=== PATIENT | male | born 1950 | race Caucasian/White ===

== ENCOUNTER → 2018-03-30 14:54 | Outpatient (CLI) | payer MEDICARE, SELFPAY ==
[2018-03-30 15:43] LABS: Add Manual Diff / Slide Review NO; Basophils Percent Auto 1.1 % (0-2); Eosinophils Percent Auto 4.8 % (2-4); Hematocrit 43.9 % (41-53); Hemoglobin 15.1 g/dL (13.5-17.5); Lymphocytes Percent Auto 26.4 % (25-40); Mean Corpuscular HGB Conc 34.4 % (30-36); Mean Corpuscular Hemoglobin 31.6 PG (26-34); Mean Corpuscular Volume 91.9 fL (80-100); Monocytes Percent Auto 7.1 % (3-14); Neutrophils Absolute Auto 4400 /uL (3000-5900); Neutrophils Percent Auto 60.6 % (50-75); Platelet Count 190 X10^3/uL (150-400); Red Blood Cell Count 4.78 X10^6/uL (4.5-5.9); Red Cell Distribution Width 13.9 % (11.6-14.8); White Blood Cell Count 7.3 X10^3/uL (4.5-11.0)
== END ==
PROVIDERS: Visit Provider Physician Assistant
DX: M48.061 Spinal stenosis, lumbar region without neurogenic claudication (principal); M51.16 Intervertebral disc disorders with radiculopathy, lumbar region; Z01.818 Encounter for other preprocedural examination; Z01.812 Encounter for preprocedural laboratory examination
CPT/HCPCS: 36415; 85025; 93005; 93010

== ENCOUNTER 2018-04-25 11:02 | Day surgery (SDC) | payer MEDICARE, SELFPAY ==
[2018-04-06 12:32] VITALS: BMI 31.6
[2018-04-20 07:45] VITALS: BMI 31.6
[2018-04-25] VITALS (7 sets, daily range): BP systolic 103–151; BP diastolic 70–83; PULSE 54–66; RESP 10–16; TEMP 36.3–37.6; O2SAT 92–99; BMI 31.6
--- NOTE | 2018-04-25 | DI.RAD.S_ITS ---
PROCEDURE: XR LUMBAR SPINE 2-3V INDICATIONS: L4-5 MICRODISCECTOMY TECHNIQUE: 2 views of the lumbar spine were acquired. COMPARISON: [facility] Outside Film, MR, MR LUMBAR SPINE WITHOUT CONTRAST, 01/13/2018, 10:39. FINDINGS: Intraoperative images demonstrate localizer overlying the posterior aspect of L5. There is trace retrolisthesis of L3 on L4 L4-L5 and L5-S1. L5-S1 foraminal narrowing is present. IMPRESSION: Intraoperative localization as above. Dictated by: Suha Garcia M.D. on 04/25/2018 at 15:26 Approved by: Suha Garcia M.D. on 04/25/2018 at 15:27
[2018-04-25] MEDS: LACTATED RINGERS 1,000 ML 42 ML IV (11:40)
--- NOTE | 2018-04-25 13:15 | PM.PREOP ---
Pre-operative Note Interval Note Pre-op Check: Yes History & Physical Reviewed by Physician, Yes Exam Performed and Yes History & Physical exam performed today by Physician Changes: No
[2018-04-25] MEDS: CLINDAMYCIN 900 MG/50 ML PIGGYBACK 50 MG IV (13:16)
--- NOTE | 2018-04-25 13:46 | SUR.OPER ---
Prone on spine table, head in foam head support, padded chest and pelvic supports, gel pad at knees, lower legs supported by pillows; nipples, genitalia and toes free of pressure, arms secured on foam padded arm boards at <90 degrees abduction. Tape over blanket at thigh secured to table.
[2018-04-25] MEDS: methylPREDNISolone acet DEPO 40 MG/ML VIAL INJ (14:01)
[2018-04-25] MEDS: BUPIVACAINE 0.25% W/ EPI VIAL 50 ML INJ (14:03)
--- NOTE | 2018-04-25 14:36 | P.OP_ITS ---
Operative Date/Time/Diagnoses Date of procedure: 04/25/18 Time of procedure: 13:13 Pre-op diagnosis: 1. L4-5 spinal stenosis 2. L4-5 lumbar disc herniation Post-op diagnosis: same Procedure & Clinicians Procedure: 1. L4-5 left microdiscectomy 2. Utiliztion of microsurgical technique and operating microscope Same procedure as scheduled: No Indications: Patient has been having chronic back pain and worsening lumbar radiculopathy. Patient failed multiple conservative management with worsening pain weakness and numbness in her lower extremity. Patient has been having difficulty performing activity of daily living. After discussing risks benefits of treatment options, patient elected proceed with surgery. Surgeon: Lucinda South Residential Insurance Inspector: Jamee Scott Click Yes if Unassisted: No Anesthesia Type: General Operative Notes Closure Type: primary Specimen(s): none sent Estimated Blood Loss (mL): 10 Procedure in detail: Patient was seen in the preoperative area. Risks and benefits of the surgery was discussed with the patient. Informed consent was obtained from the patient and placed in the chart. Surgical site was marked. Patient was taken to the operative room. General anesthesia was administered. Prophylactic antibiotic was given to the patient less than 30 min before the incision was made. Patient was placed into a prone position on the Hardeep table. Patient's back was then prepped and draped in the sterile fashion. Time- out was performed at this time. Using AP and lateral C-arm imaging the interval between L4-5 was identified and marked on patient's back. A 1 inch incision 1 in from midline was made on the left side. The fascia was incised in line with skin incision. Globus MARS retractors was placed inside the incision and docked onto the L4 lamina. Using microsurgical technique and operating microscope, a L4 laminotomy was performed using a Kerrison rongeur. Liagamentum flavum was resected at the site of the laminotomy. The disc space at L4-5 was identified. Microdiscectomy was performed by incising the annulus with #11 blade. Microcurettes and pituitary was used to removed herniated disc fragments of disc from the epidural space. After the microdiskectomy was completed, the area medial lateral superior and inferior to the area of the microdiskectomy was inspected and explored using a micro curette. No other impinging structure was identified. The wound was then irrigated with sterile normal saline. 40 mg Depo-Medrol was placed into the epidural space. The deep fascia was closed with 1-0 Vicryl. The subcutaneous tissue was closed with 2-0 Vicryl. The skin was closed with 4- 0 Monocryl. Patient tolerated the procedure well. There were no complications. Patient was transferred recovery room in stable condition. Complications: none Condition: stable Disposition: same day surgery Plan for aftercare: Discharge home
[2018-04-25] MEDS: ALBUTEROL 2.5 MG/3 ML NEB (ADULT) INH (15:09)
[2018-04-25] MEDS: OXYCODONE/ACETAMINOPHEN 5/325 TABLET 1 TAB PO (15:58)
== END 2018-04-25 16:02 | disposition home or self-care (01) ==
PROVIDERS: PCP Family Medicine; Visit Provider Orthopaedic Surgery Orthopaedic Surgery of the Spine
PROC: (CPT 63030; principal; 2018-04-25 13:15)
DX: M48.061 Spinal stenosis, lumbar region without neurogenic claudication (principal); M51.16 Intervertebral disc disorders with radiculopathy, lumbar region; M19.90 Unspecified osteoarthritis, unspecified site; I10 Essential (primary) hypertension; E78.5 Hyperlipidemia, unspecified; I25.10 Atherosclerotic heart disease of native coronary artery without angina pectoris; Z87.891 Personal history of nicotine dependence
CPT/HCPCS: 63030; 72100; 76000; J1030; J2250; J2405; J2704; J3010; J7613

== ENCOUNTER → 2020-05-10 06:05 | Outpatient (CLI) | payer MEDICARE, SELFPAY ==
[2020-05-10 08:54] LABS: Bilirubin Urine UA NEGATIVE (NEGATIVE); Color Urine UA YELLOW; Glucose Urine UA NEGATIVE (Negative); Ketones Urine UA NEGATIVE (NEGATIVE); Leukocyte Esterase Urine UA 2+ (NEGATIVE); Nitrite Urine UA NEGATIVE (Negative); Occult Blood Urine UA 1+ (Negative); Protein Urine UA TRACE (Negative); Urobilinogen Urine UA 0.2 E.U./dL (0.2)
[2020-05-10 09:02] LABS: Appearance Urine UA Cloudy
[2020-05-10 09:10] LABS: BUN Creatinine Ratio 15.7 (6-22); Blood Urea Nitrogen 19 mg/dL (9-20); Calcium 10.3 mg/dL (8.4-10.2); Carbon Dioxide 26 mmol/L (22-32); Chloride 107 mmol/L (98-107); Estimated Glomerular Filt Rate 59.5 mL/min (>60); Glucose 145 mg/dL (80-110); HEMOLYSIS 26 (0-50); Potassium 4.6 mmol/L (3.4-5.1); Sodium 139 mmol/L (137-145); Uric Acid 4.3 mg/dL (3.5-8.5)
[2020-05-10 09:18] LABS: Bacteria Urine Moderate (10-30); Culture Indicated Urine Specimen Cultured; RBC Urine 1-5/HPF (0-5/HPF); WBC Urine >100/HPF (0-5/HPF)
[2020-05-11 06:25] LABS: Parathyroid Hormone Int 30 pg/mL (15-65)
== END ==
PROVIDERS: PCP Physician Assistant; Referring Provider Physician Assistant; Visit Provider Urology
DX: N20.0 Calculus of kidney (principal)
CPT/HCPCS: 36415; 80048; 81001; 83970; 84550; 87077; 87086; 87186

== ENCOUNTER → 2021-01-01 15:41 | Outpatient (CLI) | payer MEDICARE, SELFPAY ==
[2021-01-01 16:09] LABS: Bacteria Urine None Seen
[2021-01-01 16:48] LABS: Add Manual Diff / Slide Review NO; Basophils Absolute Auto 100 /uL (0-100); Eosinophils Absolute Auto 200 /uL (0-450); Eosinophils Percent Auto 2.4 % (2-4); Hematocrit 38.8 % (41-53); Hemoglobin 13.1 g/dL (13.5-17.5); Lymphocytes Absolute Auto 1300 /uL (1100-4500); Lymphocytes Percent Auto 19.5 % (25-40); Mean Corpuscular HGB Conc 33.9 % (30-36); Mean Corpuscular Hemoglobin 30.7 PG (26-34); Mean Corpuscular Volume 90.5 fL (80-100); Monocytes Absolute Auto 400 /uL (0-900); Monocytes Percent Auto 6.2 % (3-14); Neutrophils Absolute Auto 4600 /uL (1500-7000); Neutrophils Percent Auto 70.9 % (50-75); Platelet Count 186 X10^3/uL (150-400); Red Blood Cell Count 4.28 X10^6/uL (4.5-5.9); White Blood Cell Count 6.6 X10^3/uL (4.5-11.0)
[2021-01-01 17:09] LABS: BUN Creatinine Ratio 15.8 (6-22); Blood Urea Nitrogen 18 mg/dL (9-20); Calcium 10.1 mg/dL (8.4-10.2); Carbon Dioxide 23 mmol/L (22-32); Chloride 109 mmol/L (98-107); Estimated Glomerular Filt Rate > 60.0 mL/min (>60); Glucose 120 mg/dL (80-110); HEMOLYSIS < 15 (0-50); Hemoglobin A1C% w Est Avg Glu 7.6 % (4.0-6.0); Potassium 4.1 mmol/L (3.4-5.1); Sodium 139 mmol/L (137-145)
[2021-01-01 17:39] LABS: Appearance Urine UA CLEAR; Bilirubin Urine UA NEGATIVE (NEGATIVE); Color Urine UA YELLOW; Glucose Urine UA TRACE g/dL (Negative); Ketones Urine UA NEGATIVE (NEGATIVE); Leukocyte Esterase Urine UA TRACE (NEGATIVE); Nitrite Urine UA NEGATIVE (Negative); Occult Blood Urine UA 3+ (Negative); Protein Urine UA 2+ (Negative); Specific Gravity Urine UA 1.025 (1.000-1.035); Urobilinogen Urine UA 0.2 E.U./dL (0.2)
[2021-01-01 18:00] LABS: Culture Indicated Urine Specimen Cultured; RBC Urine 1-5/HPF (0-5/HPF); Squamous Epithelial Cell Urine None Seen (0-5/HPF); WBC Urine 5-10/HPF (0-5/HPF)
== END ==
PROVIDERS: PCP Physician Assistant; Referring Provider Orthopaedic Surgery Orthopaedic Surgery of the Spine; Visit Provider Orthopaedic Surgery Orthopaedic Surgery of the Spine
DX: Z01.818 Encounter for other preprocedural examination (principal); R73.9 Hyperglycemia, unspecified; Z01.812 Encounter for preprocedural laboratory examination; N39.0 Urinary tract infection, site not specified
CPT/HCPCS: 36415; 80048; 81001; 83036; 85025; 87077; 87086; 87147; 87186; 93005

== ENCOUNTER → 2021-01-22 08:50 | Outpatient (CLI) | payer MEDICARE, SELFPAY ==
[2021-01-22 11:21] LABS: COVID19 -Nasal RAPID Negative (Negative)
== END ==
PROVIDERS: PCP Physician Assistant; Referring Provider Student in an Organized Health Care Education/Training Program; Visit Provider Student in an Organized Health Care Education/Training Program
DX: Z01.812 Encounter for preprocedural laboratory examination (principal); Z20.822 Contact with and (suspected) exposure to COVID-19
CPT/HCPCS: 87635; C9803

== ENCOUNTER 2021-01-24 06:01 | Inpatient (IN) | payer MEDICARE, SELFPAY ==
[2021-01-13 13:58] VITALS: BMI 30.2
[2021-01-24] VITALS (12 sets, daily range): BP systolic 95–141; BP diastolic 51–74; PULSE 55–76; RESP 12–20; TEMP 35.7–37.3; O2SAT 93–98; BMI 30.2
[2021-01-24] MEDS: LACTATED RINGERS 1,000 ML 42 ML IV ×2 (07:07→09:41)
[2021-01-24] MEDS: ACETAMINOPHEN 325 MG TABLET 975 MG PO (07:10)
[2021-01-24] MEDS: GABAPENTIN 300 MG CAPSULE PO (07:10)
--- NOTE | 2021-01-24 07:36 | PM.PREOP ---
Pre-operative Note COVID-19 COVID-19 status: Negative Result date/Date tested (Pos, Neg/Pending): 01/22/21 Interval Note History & Physical reviewed/Exam performed by Physician: Yes Changes to H&P: No
[2021-01-24] MEDS: CEFAZOLIN 1 GM VIAL 2 GM IV ×2 (08:02→16:22)
[2021-01-24] MEDS: BUPIVACAINE 0.25% (PF) VIAL 30 ML INJ (09:02)
[2021-01-24] MEDS: BUPIVACAINE LIPOSOME 266 MG/20 ML VIAL INJ (09:03)
--- NOTE | 2021-01-24 12:13 | PM.OP.1 ---
Operative Date/Time/Diagnoses Date of procedure: 01/24/21 Time of procedure: 07:50 Pre-op diagnosis: 1. L3-4, L4-5 spinal stenosis 2. Hx of laminectomy with epidural scarring 3. Lumbar spondylosis with radiculopathy Post-op diagnosis: same Procedure & Clinicians Procedure: 1. L3-4, L4-5 Postero-lateral and posterior interbody fusion 2. L3-4, L4-5 interbody cage placement. 3. L3-4, L4-5 decompressive laminectomy with bilateral facetecomies 4. L3-4, L4-5 Posterior segmental instrumentation 5. [place] of bone marrow from iliac crest 6. Utilization of microsurgical technique and operating microscope Same procedure as scheduled: Yes Indications: Patient has been having chronic back pain and worsening lumbar radiculopathy. Patient had previous lumbar decompression surgery with temporary relief. Patient has been having worsening leg pain and back pain over the last 6 months. Patient failed multiple conservative management with worsening pain weakness and numbness in her lower extremity. Patient has been having difficulty performing activity of daily living. After discussing risks benefits of treatment options, patient elected proceed with surgery. Surgeon: Lucinda South Aircraft Line Assembler: Tyler Ray Click Yes if Unassisted: No Anesthesia Type: General Operative Notes Closure Type: primary Specimen(s): none sent Prosthetic devices, grafts, tissues, transplants, or devices: Globus revolve screws, Rise cages Applied: catheter Estimated Blood Loss (mL): 150 Blood products transfused: none Procedure in detail: Patient was seen in the preoperative area. Risks and benefits of the surgery was discussed with the patient. Informed consent was obtained from the patient and placed in the chart. Surgical site was marked. Patient was taken to the operative room. General anesthesia was administered. Prophylactic antibiotic was given to the patient less than 30 min before the incision was made. Patient was placed into a prone position on the Hardeep table. Patient's back was then prepped and draped in the sterile fashion. Time-out was performed at this time. Using AP and lateral C-arm imaging the interval between L3-4, L4-5 was identified and marked on patient's back. A 2 inch incision 2 in from midline was made on the left side first. The fascia was incised in line with skin incision. Globus MARS retractors was placed inside the incision and docked onto the L3 and L4 lamina. Using microsurgical technique and operating microscope, a L3 and L4 laminectomy and L3-4, L4-5 facetectomy was performed using a Kerrison rongeur. Patient was found have severe central and neuroforaminal stenosis which was fully decompressed after the decompression was completed. The facetectomy and laminectomy involved more than 75% of the facets at both levels and render the L3-4 L4-5 level grossly unstable and require fusion procedure same time. The disc space at L3-4, L4-5 was identified. And a total diskectomy was performed at L3-4, L4-5 level. The endplates were decorticated using a rasp and shaver. The total diskectomy and decortication was performed at L3-4, L4-5 level in order to to accomplish a L3-4, L4-5 fusion. The local bone from the laminectomy and facetectomy was saved for local bone grafting. After the total diskectomy and decortication was completed, Trifecta bone graft material was combined with local bone that was harvested earlier. At this time, a separate skin is incision was made over the iliac crest. A Jamshidi needle was inserted into the iliac crest through a separate skin incision. 5 cc of bone marrow aspiration was obtained through the separate skin incision using a Jamshidi needle from the iliac crest. The bone marrow aspiration was combined with local bone and the Trifecta bone grafting material. The bone grafting material was placed into the L3-4, L4-5 interbody space along with two cages, one expandable cage at each level. The cages were expanded to their maximum height using the torque limiting screwdriver. At this time a mirror image incision was made on the right side. The fascia was incised in line with the skin incision. Globus MARS retractor was inserted and docked onto the L3-4, L4-5 posterolateral gutter. Using the power drill, posterior-lateral decortication was performed at L3-4, L4-5 level until bleeding cortical bone was identified. The remaining bone grafting material was placed into the L3-4, L4-5 posterior lateral gutter he order to accomplish posterolateral fusion at the L3-4, L4-5 levels. Using the double C-arm technique, pedicle screws were placed into the L3, L4, L5 pedicles bilaterally. This was done by placing the Jamshidi needle into the pedicles, then placing the guidewires over the Jamshidi needle, and finally placing the cannulated screws over the guidewires bilaterally. After the pedicle screws were placed, 2 titanium rods was locked into the heads of the pedicle screws using locking caps and torque limiting screwdriver. Total 6 pedicles screws were placed. After all the hardware was placed, and confirmed with AP and lateral C-arm imaging, the wound was then irrigated with sterile normal saline and packed with Ray-Sonia gauze for 3 min to accomplish hemostasis. After the gauze was removed the deep fascia was closed with #1 Vicryl suture. The subcutaneous layer was closed with 2-0 Vicryl. The skin was closed with skin vaishali. Patient tolerated the procedure well. There were no complications. Complications: none Post-operative Condition: stable Disposition: PACU Plan for aftercare: Admit to inpatient hospital
--- NOTE | 2021-01-24 12:15 | DI.RAD.S_ITS ---
PROCEDURE: XR LUMBAR SPINE 2-3V INDICATIONS: L3-4, L4-5 TLIF TECHNIQUE: 3 views of the lumbar spine were acquired. COMPARISON: [facility], [facility], XR LUMBAR SPINE 2-3V, 04/25/2018, 13:39. FINDINGS: Fluoroscopic images demonstrating posterior fusion from L3 through L5 is noted. There is good anatomic alignment intervertebral spacers are present. IMPRESSION: Posterior fusion as above. Dictated by: Suha Garcia M.D. on 01/24/2021 at 13:04 Approved by: Suha Garcia M.D. on 01/24/2021 at 13:04
[2021-01-24] MEDS: ALBUTEROL 2.5 MG/3 ML NEB (ADULT) INH (12:35)
--- NOTE | 2021-01-24 12:51 | SUR.PHASEI ---
1235- katey breath sounds coarse, albuterol per nebulizer given
[2021-01-24] MEDS: SODIUM CHLORIDE 0.9% 1,000 ML 100 ML IV (15:06)
[2021-01-24] MEDS: OXYCODONE IR 5 MG TABLET 10 MG PO (15:53)
[2021-01-24 16:04] LABS: Bilirubin Urine UA NEGATIVE (NEGATIVE); Color Urine UA YELLOW; Glucose Urine UA NEGATIVE (Negative); Ketones Urine UA NEGATIVE (NEGATIVE); Leukocyte Esterase Urine UA 1+ (NEGATIVE); Nitrite Urine UA NEGATIVE (Negative); Occult Blood Urine UA TRACE-LYSED (Negative); Protein Urine UA NEGATIVE (Negative); Urobilinogen Urine UA 0.2 E.U./dL (0.2)
[2021-01-24 16:11] LABS: Appearance Urine UA Slightly Cloudy
[2021-01-24 16:15] LABS: RBC Urine 0-1/HPF (0-5/HPF); Squamous Epithelial Cell Urine 0-1 /HPF (0-5/HPF); WBC Urine 10-30/HPF (0-5/HPF)
[2021-01-24 16:16] LABS: Amorphous Sediment Urine 1+; Bacteria Urine Occasional (0-1); Culture Indicated Urine Specimen Cultured; Mucus Urine 1+ (Negative); Renal Epithelial Cells Urine 0-1/HPF (0-1/HPF)
[2021-01-24] MEDS: TAMSULOSIN 0.4 MG CAPSULE 0.8 MG PO (20:46)
[2021-01-24] MEDS: SENNOSIDES 8.6 MG TABLET 17.2 MG PO (20:46)
[2021-01-24] MEDS: DOCUSATE 100 MG CAPSULE PO (20:47)
[2021-01-25] VITALS (10 sets, daily range): BP systolic 126–136; BP diastolic 67–71; PULSE 60–73; RESP 16–18; TEMP 36.6–37.6; O2SAT 88–98
[2021-01-25] MEDS: CEFAZOLIN 1 GM VIAL 2 GM IV (00:31)
[2021-01-25] MEDS: SODIUM CHLORIDE 0.9% 1,000 ML 100 ML IV (00:34)
[2021-01-25] MEDS: OXYCODONE IR 5 MG TABLET 10 MG PO ×6 (01:33→21:53)
[2021-01-25] MEDS: hydrOXYzine pamoate 25 MG CAPSULE PO ×3 (01:33→09:07)
[2021-01-25 06:12] LABS: Hematocrit 35.3 % (41-53); Hemoglobin 11.8 g/dL (13.5-17.5)
[2021-01-25] MEDS: lisinopriL 20 MG TABLET 40 MG PO (09:06)
[2021-01-25] MEDS: METFORMIN HCL 500 MG TABLET PO (09:06)
[2021-01-25] MEDS: DOCUSATE 100 MG CAPSULE PO ×2 (09:06→19:22)
--- NOTE | 2021-01-25 10:56 | P.PN_ITS ---
Subjective Subjective Date Patient Seen: 01/25/21 Time Patient Seen: 10:56 Interval history: Pain severe. Denies fever or chills. No nausea or vomiting. Exam Vital Signs (past 8 hours): - 01/25/21 09:00 01/25/21 09:06 01/25/21 09:22 Temperature 98.8 F Pulse Rate 66 60 Respiratory Rate 17 Blood Pressure 128/68 128/68 Pulse Oximetry 98 88 L 01/25/21 09:26 Temperature Pulse Rate Respiratory Rate Blood Pressure Pulse Oximetry 93 Fraction of Inspired Oxygen 24 Oxygen Delivery Method Nasal Cannula Oxygen Flow Rate 1 Narrative Exam Narrative: 70-year-old male resting comfortably in bed in no apparent distress. Scant moisture on the dressing. Motor functions intact bilateral lower extremities. Sensation grossly intact to light touch bilateral lower extremities. Both legs are warm and dry. No calf tenderness. Objective Labs Result Diagrams: 01/25/21 05:40 Labs: Laboratory Results - last 24 hr 01/24/21 01/25/21 15:58 05:40 Hgb 11.8 L Hct 35.3 L Urine Color Yellow Urine Appearance Slightly cloudy Urine pH 6.0 Ur Specific [place] 1.020 Urine Protein Negative Urine Glucose (UA) Negative Urine Ketones Negative Urine Occult Blood Trace-lysed Urine Nitrate Negative Urine Bilirubin Negative Urine Urobilinogen 0.2 Ur Leukocyte Esterase 1+ H Urine RBC 0-1/hpf Urine WBC 10-30/hpf H Ur Squamous Epith Cells 0-1 /hpf Ur Renal Epithelial Cell 0-1/hpf Amorphous Sediment 1+ Urine Bacteria Occasional (0-1) Urine Mucus 1+ H Ur Culture Indicated? Specimen cultured [facility] Medical History Arthritis Bradycardia Diabetes (~2019) Easy bruisability GERD (gastroesophageal reflux disease) HTN (hypertension) Hyperlipidemia Kidney stones Numbness and tingling Osteoarthritis Prostate cancer (2019) Surgical History History of bilateral carpal tunnel release History of total left hip arthroplasty History of total right hip arthroplasty Hx of arthroscopy of right knee Hx of heart artery stent Hx of lithotripsy Hx of microdiscectomy (04/25/18) Hx of nasal septoplasty Hx of tonsillectomy S/P CABG x 4 Social History household members: spouse Smoking Status: Current every day smoker alcohol intake: current Assessment & Plan Post-op Postoperative Procedures: Procedures Operation Date: 01/24/21 07:45 Actual Procedure Side Surgeon p L3-4, L4-5 TLIF w/ posterior instrumentation Lucinda South MD Postoperative day: 1 Postoperative status: doing well and marginal pain control Postoperative status narrative: Patient's stable status post lumbar fusion Postoperative plan narrative: Continue work on pain control. Mobilize with physical therapy. Limit bending, twisting, lifting. Likely discharge home in 1-2 days. Quality VTE Deep Vein Thrombosis/Pulmonary Embolism Present on Admission: No
[2021-01-25] MEDS: ATORVASTATIN 20 MG TABLET 80 MG PO (11:00)
[2021-01-25] MEDS: OXYBUTYNIN 5 MG ER TAB PO (11:00)
--- NOTE | 2021-01-25 11:20 | PT.IIE ---
Current Diagnoses Other secondary scoliosis, thoracolumbar region (01/24/21) Spinal stenosis, lumbar region without neurogenic claudication (01/24/21) Postlaminectomy syndrome, not elsewhere classified (01/24/21) Surgery Performed Operation Date: 01/24/21 07:45 Actual Procedures p L3-4, L4-5 TLIF w/ posterior instrumentation - Lucinda South MD Medical History (Last Reviewed 01/25/21 @ 10:57 by Tyler Ray PA-C) Arthritis Bradycardia Diabetes (~2019) Easy bruisability GERD (gastroesophageal reflux disease) HTN (hypertension) Hyperlipidemia Kidney stones Numbness and tingling Osteoarthritis Prostate cancer (2019) Physical Therapy Inpatient Evaluation/Re-Eval M1 PT/OT-IP Prior Functional Status Start: 01/25/21 12:45 Freq: NEEDED Status: Active Protocol: Document 01/25/21 12:45 CGR (Rec: 01/25/21 13:02 CGR [id number]) Medical Review Prior Functional Status Medical History Reviewed Yes Communication Pt is an effective verbal communicator. Mobility and Gait Pt was IND with mobility at baseline. Activities of Daily Living and IADL's Pt was IND for ADLs at baseline. Social History Household Members spouse Living Arrangements House Number of Floors (Floors) One Floor Number of Stairs To Enter/Railing? 5 steps to enter with B wide rails Home Environment Standard Height Toilet,Walk in Shower,Built-In Shower Seat Home Equipment Front Wheel Walker,Four Wheel Walker,Hand Held Shower,Grab Bars In Shower Additional Social History Comment Pt has an adjustable bed without rails. M2 PT-IP Current Condition Start: 01/25/21 13:44 Freq: NEEDED Status: Active Protocol: Document 01/25/21 11:20 AB (Rec: 01/25/21 13:59 AB [id number]) Physical Therapy Current Condition Current Condition Evaluation Date 01/25/21 Treatment Diagnosis s/p L3-4, L4-5 fusion/lami; difficulty in walking Onset Date 01/24/21 Precautions Lumbar Precautions Log Roll,No Twisting,Limit Bending,Lifting Restriction of 10 lbs,Gait Belt above Incisional Area M3 PT-IP Subjective Start: 01/25/21 13:44 Freq: NEEDED Status: Active Protocol: Document 01/25/21 11:20 AB (Rec: 01/25/21 13:59 [email or web address]) Subjective Physical Therapy Visit Type Type Initial Evaluation Visit Start Time 11:20 Visit Stop Time 11:51 Total Visit Minutes 31 Number of FITNESS COORDINATOR Visits 0 Physical Therapy Visit Comments Patient Comments c/o increase pain; initially lethargic Therapy Pain Assessment Pain When Pain Assessed At Rest Pain Present Pain Present Pain Reported Location Back Intensity 5 Scale Used increases to 7-8/10 [facility] mobility Pain Management Techniques Distraction,Modification of Treatment,Re-positioning, Timing of Activity with Medications M4 PT-IP Mobility and Gait Start: 01/25/21 13:44 Freq: NEEDED Status: Active Protocol: Document 01/25/21 11:20 AB (Rec: 01/25/21 13:59 [email or web address]) PT-Bed Mobility Assessment Rolling Type of Rolling Log Rolling Level of Assist Maximal Assistance,2 Person Assistance Supine to Sit Supine to Sit Maximum Assistance,2 Person Assistance,Bedrails Sit to Supine Sit to Supine Maximum Assistance,2 Person Assistance,Bedrails Scooting Scooting to Edge of Bed Maximum Assistance Scooting Up and Down in Bed Maximum Assistance PT-Transfer Assessment Sit to and From Stand Sit to and from Stand Maximum Assistance,2 Person Assistance,Use of Upper Extremities Equipment Transfer Assistive Device Gait Belt,Front Wheeled Walker Orthotic/Prosthetic Devices or Brace: No Comments Mobility Comments pt initially very sleepy but but agreed to do therapy. c/o increase back pain with movement. educated pt on back precautions and bed mobility. pt completed supine to sit max A x 2 and max cues. pt was able to sit on EOB with intial max A with increase posterior leaning. positioned pt on EOB and was able to sit with min A with cues for leanign forward. used bed rail for support. attempted sit to stand x 2 reps but with unable to stand fully upright despite max A x 2 provided. increase bilateral knee flexion. pt c/o increase pain and stated that he has to go back to bed and does not want to sit up o n the chair. stated that he just have too much pain. pt tolerated a few more minutes of sitting on EOB while nurse change back dressing. pt assisted back to bed and was able to scoot towards HOB max A and cues. completed sit to supine max A x 2 and max cues. positioned pt on the bed. call light and table placed within reach. Gait Assessment Comments Gait Comments unable at this time PT-Balance Assessment Sitting Balance and Reactions Static Sitting Balance Ability Fair Dynamic Sitting Balance Ability Poor Standing Balance and Reactions Static Standing Balance Ability Poor Dynamic Standing Balance Ability Poor Device Used FWW M5 PT-IP Objective Assessments Start: 01/25/21 13:44 Freq: NEEDED Status: Active Protocol: Document 01/25/21 11:20 AB (Rec: 01/25/21 13:59 AB [id number]) Orientation Orientation/Cognition Level of Alertness Alert Orientation Name,Place,Situation Safety Awareness Decreased Safety Awareness Memory Description Short Term Impaired Gross Range of Motion Lower Extremity ROM Assessment Within Functional Limits Strength Lower Extremity Strength Assessment Left Impaired Hip 3-/5 Knee 3-/5 Sensation Assessment Sensation Gross Sensation Right LE Impaired Sensation Description Numbness Comments Sensation Comments L toes numbness Muscle Tone Muscle Tone WNL Yes M6 PT-IP Treatment Start: 01/25/21 13:44 Freq: NEEDED Status: Active Protocol: Document 01/25/21 11:20 AB (Rec: 01/25/21 13:59 AB [email or web address]) Physical Therapy Treatment Education Education Provided Precautions,Weight Bearing Status,Post-Op Packet,Safety M7 PT-IP Assessment and Plan Start: 01/25/21 13:44 Freq: NEEDED Status: Active Protocol: Document 01/25/21 11:20 AB (Rec: 01/25/21 13:59 AB [email or web address]) PT Summary Assessment and Plan Potential Rehabilitation Potential Fair Status of Condition at Evaluation Evolving Summary Impairments Pain,ROM,Strength,Balance, Coordination,Sensation,Tone, Cognition,Bed Mobility, Transfers,Gait,Activity Tolerance Assessment Summary pt requiring max A x 2 with bed mobility and unable to fully stand up despite max A x 2 provided and unable to tolerate much activity with c/ o increase back pain. Pt will require SNF rehab to improve strength and mobility. Goals Bed Mobility Goal Minimal Assistance Transfer Goal Minimal Assistance,Front Wheeled Walker Gait Goal Minimal Assistance,Front Wheel Walker Gait Distance 50 Other Goals improve bed mobility, transfers SBA and ambulation SBA using FWW 100 ft up/down 5 steps 1 rail SBA Days to Meet Goals 10 Frequency of Treatment Frequency Of Treatment Twice a Day Treatment Plan Physical Therapy Treatment Plan Bed Mobility Training,Transfer Training,Gait Training, Therapeutic Exercise,Balance Retraining,Post Op Education, Discharge Planning,Hot or Cold Pack,Neuromuscular Re-ed, Coordination Retraining,Manual Therapy Precautions Lumbar Precautions Log Roll,No Twisting,Limit Bending,Lifting Restriction of 10 lbs,Gait Belt above Incisional Area Recommendations To Nursing Amount of Assist Needed Mechanical Lift Discharge Recommendations PT Discharge Recommendations SNF Rehab Transportation Needs at Discharge Wheelchair/Cabulance,Stretcher /Ambulance
--- NOTE | 2021-01-25 11:52 | OT.IP.EVAL ---
Current Diagnoses Other secondary scoliosis, thoracolumbar region (01/24/21) Spinal stenosis, lumbar region without neurogenic claudication (01/24/21) Postlaminectomy syndrome, not elsewhere classified (01/24/21) Surgery Performed Operation Date: 01/24/21 07:45 Actual Procedures p L3-4, L4-5 TLIF w/ posterior instrumentation - Lucinda South MD Past Medical History (Last Reviewed 01/25/21 @ 10:57 by Tyler Ray PA-C) Arthritis Bradycardia Diabetes (~2019) Easy bruisability GERD (gastroesophageal reflux disease) History of bilateral carpal tunnel release History of total left hip arthroplasty History of total right hip arthroplasty HTN (hypertension) Hx of arthroscopy of right knee Hx of heart artery stent Hx of lithotripsy Hx of microdiscectomy (04/25/18) Hx of nasal septoplasty Hx of tonsillectomy Hyperlipidemia Kidney stones Numbness and tingling Osteoarthritis Prostate cancer (2019) S/P CABG x 4 Surgical History (Last Reviewed 01/25/21 @ 10:57 by Tyler Ray PA-C) History of bilateral carpal tunnel release History of total left hip arthroplasty History of total right hip arthroplasty Hx of arthroscopy of right knee Hx of heart artery stent Hx of lithotripsy Hx of microdiscectomy (04/25/18) Hx of nasal septoplasty Hx of tonsillectomy S/P CABG x 4 Occupational Therapy Inpatient Evaluation/Re-Eval M1 PT/OT-IP Prior Functional Status Start: 01/25/21 12:45 Freq: NEEDED Status: Active Protocol: Document 01/25/21 12:45 CGR (Rec: 01/25/21 13:02 CGR [id number]) Medical Review Prior Functional Status Medical History Reviewed Yes Communication Pt is an effective verbal communicator. Mobility and Gait Pt was IND with mobility at baseline. Activities of Daily Living and IADL's Pt was IND for ADLs at baseline. Social History Household Members spouse Living Arrangements House Number of Floors (Floors) One Floor Number of Stairs To Enter/Railing? 5 steps to enter with B wide rails Home Environment Standard Height Toilet,Walk in Shower,Built-In Shower Seat Home Equipment Front Wheel Walker,Four Wheel Walker,Hand Held Shower,Grab Bars In Shower Additional Social History Comment Pt has an adjustable bed without rails. M2 OT-IP Current Condition Start: 01/25/21 12:45 Freq: Status: Active Protocol: Document 01/25/21 12:45 CGR (Rec: 01/25/21 13:02 CGR [id number]) Occupational Therapy Current Condition Current Condition Evaluation Date 01/25/21 Treatment Diagnosis TLIF L3-5 Diagnosis Onset Date 01/24/21 Post Operative Precautions Lumbar Precautions Log Roll,No Twisting,Limit Bending,Lifting Restriction of 10 lbs,Gait Belt above Incisional Area M3 OT- IP Subjective and Pain Start: 01/25/21 12:45 Freq: Status: Active Protocol: Document 01/25/21 12:45 CGR (Rec: 01/25/21 13:02 CGR [id number]) OT- Subjective Occupational Therapy Visit Type Type Initial Evaluation Visit Start Time 11:20 Visit Stop Time 11:52 Total Visit Minutes 32 Notes CO-eval with P.t. OT Pain Assessment Pain When Pain Assessed During Mobility Pain Present Pain Present Pain Reported Location Back Intensity 8 Scale Used Numeric (0 - 10) Management Techniques Distraction,Modification of Treatment,Re-positioning, Timing of Activity with Medications M4 OT- IP ADL's Start: 01/25/21 12:45 Freq: Status: Active Protocol: Document 01/25/21 12:45 CGR (Rec: 01/25/21 13:02 CGR [id number]) OT [id number] Comments OT Self-Feeding Comments Not meal time OT ADL-Grooming Comments OT Grooming Comments Not performed OT ADL-Oral Care Comments Oral Care Comments Not performed OT ADL-Dressing General Eval Lower Body Dressing Ability Total Assistance Areas Needing Assistance Socks OT ADL-Toileting General Evaluation Toileting Ability Total Assistance Comments OT Toileting Comments Pt with fallon cath OT ADL-Bathing Comments OT Bathing Comments Not performed M5 OT- IP IADL's Start: 01/25/21 12:45 Freq: Status: Active Protocol: Document 01/25/21 12:45 CGR (Rec: 01/25/21 13:02 CGR [id number]) OT-Instrumental Activities of Daily Living Deficits IADL Deficits Identified No Deficits Home Safety Awareness Awareness of Need for Assistance at Home Good Awareness Ability to Problem Solve Emergency Able to Problem Solve Situations Medication Management Medication Management No Deficits Identified Money Management Money Management No Deficits Identified Meal Preparation Meal Preparation Caregiver Provides Assist Gis Consultant Gis Consultant Caregiver Provides Assist Driving Driving Comments 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 OT- IP Functional Cognition Start: 01/25/21 12:45 Freq: Status: Active Protocol: Document 01/25/21 12:45 CGR (Rec: 01/25/21 13:02 CGR [id number]) Cognitive Factors Limiting Selfcare Function Cognitive Ability Level of Alertness Alert Patient Orientation Name,Age,Birthday,Month,Date, Year,Day of Week,Place, Situation Attention Span Ability Capable of Focused Attention, Capable of Sustained Attention Ability to Follow Commands Able to Follow Multi-Step Commands OT- Vision and Hearing OT- Hearing Assessment OT- Hearing Assessment WFL OT- Vision Assessment Visual Acuity Glasses All The Time Visual Attentiveness WFL Occular Pursuits WFL Visual Convergence WFL Vision Assessment Comments Pt wears bifocals M7 OT- IP Mobility and Balance Start: 01/25/21 12:45 Freq: Status: Active Protocol: Document 01/25/21 12:45 CGR (Rec: 01/25/21 13:02 CGR [id number]) OT- Bed Mobility Assessment Rolling Type of Rolling Log Rolling,Roll to Right Level of Assistance Maximum Assistance,2 Person Assistance Supine to Sit Supine to Sit Assist Maximum Assistance,2 Person Assistance Sit to Supine Sit to Supine Assist Maximum Assistance,2 Person Assistance Scooting Scooting to Edge of Bed Maximum Assistance,2 Person Assistance OT-Transfer Assessment Sit to and From Stand Sit to and from Stand Maximum Assistance,2 Person Assistance Transfers Transfer Ability Total Assistance Technique Transfer Destination Bed Devices Transfer Assistive Devices Gait Belt,Front Wheeled Walker Comments Mobility Comments Pt was able to stand twice with encouragement and max x 2 . Pt was unable to maintain standing for more then ~3-4 seconds. Pt was able to scoot up to the head of the bed to return to bed. OT- Balance Assessment Sitting Balance and Reactions Static Sitting Balance Ability Good M8 OT- IP Objective Assessments Start: 01/25/21 12:45 Freq: Status: Active Protocol: Document 01/25/21 12:45 CGR (Rec: 01/25/21 13:02 CGR [id number]) OT Gross Range of Motion Upper Extremity Range of Motion Assessment Within Functional Limits OT Strength Upper Extremity Strength Assessment Within Functional Limits Comments Strength Comments 4/5 throughout OT- Coordination Assessment Upper Extremity Finger to Nose Test Within Functional Limits Finger Tapping Test Within Functional Limits OT-Muscle Tone Assessment Muscle Tone WNL Yes OT Sensation Assessment Edema Edema Absent M9 OT- IP Assessment and Plan Start: 01/25/21 12:45 Freq: Status: Active Protocol: Document 01/25/21 12:45 CGR (Rec: 01/25/21 13:02 CGR [id number]) OT Summary Assessment and Plan Potential Rehabilitation Potential Good Analytic Complexity at Evaluation Moderate Summary OT Impairments Pain,Strength,Balance, Functional Mobility,Grooming, Dressing,Toileting,Bathing, Toilet Transfers,Shower Transfers,Activity Tolerance Progress Towards Goals Slow Progress due to Pain Assessment Summary Pt presents as a moderate complexity evaluation s/p admit for L3-5 TLIF. Pt needed max x 2 for bed mobility and sit to stand and was unable to tolerate standing for any length of time. Pt will benefit from continued OT services and will need SNF upon discharge unless his mobility ability increases significantly. Goals Grooming Goal Independent Dressing Goal Independent Toileting Goal Independent Bathing Goal Independent Toilet Transfer Goal Independent Shower Transfer Goal Independent Days to Meet Goals 30 Frequency of Treatment Frequency Of Treatment Once a Day Treatment Plan OT Treatment Plan ADL Training,Functional Mobility,Patient/Family Education,Discharge Planning Other Treatment Recommendations and Next transfer to chair with 2 Treatment Focus person assist. Discharge Recommendations OT Discharge Recommendations SNF Rehab Transportation Needs at Discharge Wheelchair/Cabulance
[2021-01-25] MEDS: HYDROMORPHONE 0.5 MG INJ IV (11:56)
--- NOTE | 2021-01-25 12:43 | CM.DANOTE ---
DCP: Case received, EMR reviewed and met with patient. Introduced self and role. Was able to obtain information from patient regarding his baseline activity status prior to having surgery. DCP assessment was completed based on information currently available. Patient is a 70 year old male who admitted yesterday morning to the care of the orthopedic team. PCP: Dr. Garcia. Payer: confirmed: [employer] Medicare. Patient came to the hospital for a surgical procedure. He had posteo-lateral and posterior interbody fusion. Patient has history of chronic back pain secondary to spinal stenosis. Met with patient in his room. He was sitting up in bed, alert and oriented. He resides on [address] with his spouse, Nia. Patient is independent at his baseline, asked him how he gets around, and he indicated. slowly. He clarified that he has been driving, and uses no DME at his baseline. He also confirmed that his will be able to help him at homes, and no stairs that he will need to navigate. P: DCP to continue to follow, and will be available for any resources needed. He will be working with P.T. as well. He should be able to go home when medically stable and cleared by P.T. Annie Kulkarni RN/Director Of Finance
--- NOTE | 2021-01-25 15:27 | PT-IP ANOTE ---
RN stating pt has been very groggy since noon meds. Woke pt and pt stated he felt very sleepy and would like to wait until tomorrow to get up. Will check back with pt in the morning.
[2021-01-25] MEDS: SENNOSIDES 8.6 MG TABLET 17.2 MG PO (19:23)
[2021-01-25] MEDS: TAMSULOSIN 0.4 MG CAPSULE 0.8 MG PO (19:23)
[2021-01-26] VITALS (10 sets, daily range): BP systolic 107–136; BP diastolic 57–84; PULSE 65–84; RESP 16–20; TEMP 36–37.3; O2SAT 91–96
[2021-01-26] MEDS: OXYCODONE IR 5 MG TABLET 10 MG PO ×3 (02:09→13:23)
[2021-01-26] MEDS: hydrOXYzine pamoate 25 MG CAPSULE PO ×3 (02:09→13:24)
--- NOTE | 2021-01-26 07:13 | PC.NURSE ---
Dressing CDI. I cannot get old description off body image. There is no reinforced dressing, CDI. Davey removed 0700 and charted.
[2021-01-26] MEDS: OXYBUTYNIN 5 MG ER TAB PO (09:02)
[2021-01-26] MEDS: DOCUSATE 100 MG CAPSULE PO ×2 (09:02→20:34)
[2021-01-26] MEDS: METFORMIN HCL 500 MG TABLET PO (09:03)
[2021-01-26] MEDS: lisinopriL 20 MG TABLET 40 MG PO (09:03)
[2021-01-26] MEDS: ATORVASTATIN 20 MG TABLET 80 MG PO (09:03)
[2021-01-26] MEDS: HYDROMORPHONE 0.5 MG INJ IV (09:15)
--- NOTE | 2021-01-26 09:44 | PT.IPTN ---
Current Diagnoses Other secondary scoliosis, thoracolumbar region (01/24/21) Spinal stenosis, lumbar region without neurogenic claudication (01/24/21) Postlaminectomy syndrome, not elsewhere classified (01/24/21) Surgery Performed Operation Date: 01/24/21 07:45 Actual Procedures p L3-4, L4-5 TLIF w/ posterior instrumentation - Lucinda South MD Physical Therapy Treatment Note M2 PT-IP Current Condition Start: 01/25/21 13:44 Freq: NEEDED Status: Active Protocol: Document 01/26/21 10:23 MA (Rec: 01/26/21 10:37 MA [id number]) Physical Therapy Current Condition Current Condition Evaluation Date 01/25/21 Treatment Diagnosis s/p L3-4, L4-5 fusion/lami; difficulty in walking Onset Date 01/24/21 Precautions Lumbar Precautions Log Roll,No Twisting,Limit Bending,Lifting Restriction of 10 lbs,Gait Belt above Incisional Area M3 PT-IP Subjective Start: 01/25/21 13:44 Freq: NEEDED Status: Active Protocol: Document 01/26/21 10:23 MA (Rec: 01/26/21 10:37 MA [id number]) Subjective Physical Therapy Visit Type Type Treatment Note Visit Start Time 09:21 Visit Stop Time 09:44 Total Visit Minutes 23 Number of YARD PILOT Visits 1 Physical Therapy Visit Comments Patient Comments c/o increase pain; initially lethargic Therapy Pain Assessment Pain When Pain Assessed At Rest Pain Present Pain Present Pain Reported Location Back Intensity 5 Scale Used Numeric (0 - 10) Pain Management Techniques Distraction,Modification of Treatment,Re-positioning, Timing of Activity with Medications M4 PT-IP Mobility and Gait Start: 01/25/21 13:44 Freq: NEEDED Status: Active Protocol: Document 01/26/21 10:23 MA (Rec: 01/26/21 10:37 MA [id number]) PT-Bed Mobility Assessment Rolling Type of Rolling Log Rolling Level of Assist Maximal Assistance,2 Person Assistance Supine to Sit Supine to Sit Maximum Assistance,2 Person Assistance,Bedrails Sit to Supine Sit to Supine Maximum Assistance,2 Person Assistance,Bedrails Scooting Scooting to Edge of Bed Maximum Assistance Scooting Up and Down in Bed Maximum Assistance PT-Transfer Assessment Sit to and From Stand Sit to and from Stand Moderate Assistance,Maximum Assistance,2 Person Assistance ,Use of Upper Extremities Equipment Transfer Assistive Device Gait Belt,Front Wheeled Walker Orthotic/Prosthetic Devices or Brace: No Comments Mobility Comments Pt was Max A x2 for all bed mobility. He could not repeat spinal precautions but knew he needed to log roll to get up. Pt reminded of spinal precautions before mobilizing. Nurse present to assist with transfer. He is Max Ax2 for first sit<>stand and Mod Ax2 for second sit<>stand. He needs cues for hand placement when standing/sitting. Gait Assessment Comments Gait Comments unable due to pain at this time PT-Balance Assessment Sitting Balance and Reactions Static Sitting Balance Ability Fair Dynamic Sitting Balance Ability Poor Standing Balance and Reactions Static Standing Balance Ability Poor Dynamic Standing Balance Ability Poor Device Used FWW M5 PT-IP Objective Assessments Start: 01/25/21 13:44 Freq: NEEDED Status: Active Protocol: Document 01/25/21 11:20 AB (Rec: 01/25/21 13:59 AB [id number]) Orientation Orientation/Cognition Level of Alertness Alert Orientation Name,Place,Situation Safety Awareness Decreased Safety Awareness Memory Description Short Term Impaired Gross Range of Motion Lower Extremity ROM Assessment Within Functional Limits Strength Lower Extremity Strength Assessment Left Impaired Hip 3-/5 Knee 3-/5 Muscle Tone Muscle Tone WNL Yes M6 PT-IP Treatment Start: 01/25/21 13:44 Freq: NEEDED Status: Active Protocol: Document 01/26/21 10:23 MA (Rec: 01/26/21 10:37 MA [id number]) Physical Therapy Treatment Education Education Provided Precautions,Weight Bearing Status,Post-Op Packet,Safety M7 PT-IP Assessment and Plan Start: 01/25/21 13:44 Freq: NEEDED Status: Active Protocol: Document 01/26/21 10:23 MA (Rec: 01/26/21 10:37 MA [id number]) PT Summary Assessment and Plan Potential Rehabilitation Potential Fair Status of Condition at Evaluation Evolving Summary Impairments Pain,ROM,Strength,Balance, Coordination,Sensation,Tone, Cognition,Bed Mobility, Transfers,Gait,Activity Tolerance Assessment Summary Pt was MaxA x2 for all bed mobility. He was Max-Mod A for sit<>stand transfers and was able to tolerate increased time seated EOB today. Timed PT with medications due to pt having increased pain with movement. Pt agreeable to attempt gait this PM if timed with medication again. Due to pts decreased activity tolerance, recommending SNF at this time. Goals Bed Mobility Goal Minimal Assistance Transfer Goal Minimal Assistance,Front Wheeled Walker Gait Goal Minimal Assistance,Front Wheel Walker Gait Distance 50 Other Goals improve bed mobility, transfers SBA and ambulation SBA using FWW 100 ft up/down 5 steps 1 rail SBA Days to Meet Goals 10 Frequency of Treatment Frequency Of Treatment Twice a Day Treatment Plan Physical Therapy Treatment Plan Bed Mobility Training,Transfer Training,Gait Training, Therapeutic Exercise,Balance Retraining,Post Op Education, Discharge Planning,Hot or Cold Pack,Neuromuscular Re-ed, Coordination Retraining,Manual Therapy Precautions Lumbar Precautions Log Roll,No Twisting,Limit Bending,Lifting Restriction of 10 lbs,Gait Belt above Incisional Area Recommendations To Nursing Amount of Assist Needed Mechanical Lift Discharge Recommendations PT Discharge Recommendations SNF Rehab Transportation Needs at Discharge Wheelchair/Cabulance,Stretcher /Ambulance
--- NOTE | 2021-01-26 11:08 | CM.DPC ---
Addendum entered by Annie Kulkarni R.N. 01/26/21 12:44: Spoke to patient's , Nia Quintana, who had concerns about her 's weakness. She stated that she is 11 years older than patient, and is concerned about him going home if he is having difficulty with ambulations. Let her know that this business case analyst sent referrals to [facility], both [facility]. stated, [facility] would be great, since it's close to home. Let her know that there is also a possibility that patient could improve after another day, since Dr. South indicated that patient can possibly discharge tomorrow. Gave patient's this case manage's phone number if she has any additional questions. Will need to follow up with facilities, and see if patient improves with his mobility tomorrow as well. Original Note: DCP Cont: It is noted that patient is a two person transfer, max assist, according to O.T. yesterday, and P.T. today. Patient was sleeping, has not been mobile. has not been in. Patient resides on [address], went ahead and called [facility] and left them a message to see if they can possibly accept. Patient has [employer] Medicare, so they would also need to get auth. Will fax referral over to [facility], and may consider the [facility] as well. P: DCP to continue to follow and will attempt skilled placement. Barriers are that many facilities are full, and not accepting patients until Wednesday. Annie Kulkarni RN/Building Energy Consultant
--- NOTE | 2021-01-26 12:17 | PM.PN.1 ---
Exam Vital Signs (past 8 hours): - 01/26/21 08:00 01/26/21 08:56 01/26/21 08:59 Temperature 96.8 F L Pulse Rate 77 75 75 Respiratory Rate 20 16 16 Blood Pressure 123/61 Pulse Oximetry 94 96 93 01/26/21 09:03 01/26/21 11:00 Temperature 98.3 F Pulse Rate 65 74 Respiratory Rate 20 Blood Pressure 123/61 107/62 Pulse Oximetry 91 Fraction of Inspired Oxygen 24 Oxygen Delivery Method Room Air Oxygen Flow Rate 0 Objective Labs Result Diagrams: 01/25/21 05:40 PFSH Medical History Arthritis Bradycardia Diabetes (~2019) Easy bruisability GERD (gastroesophageal reflux disease) HTN (hypertension) Hyperlipidemia Kidney stones Numbness and tingling Osteoarthritis Prostate cancer (2019) Surgical History History of bilateral carpal tunnel release History of total left hip arthroplasty History of total right hip arthroplasty Hx of arthroscopy of right knee Hx of heart artery stent Hx of lithotripsy Hx of microdiscectomy (04/25/18) Hx of nasal septoplasty Hx of tonsillectomy S/P CABG x 4 Social History household members: spouse Smoking Status: Current every day smoker alcohol intake: current Assessment & Plan Assessment & Plan narrative: POD#2 s/p lumbar fusion. Patient is admitted after surgery. Patient has been stable and progressing with physical therapy. Only has done in room mobilization due to post op pain. Patient is neurovascularly intact on exam. Patient has no signs or symptoms of DVT. Patient's dressing is clean dry and intact. Will need additional PT for mobility training. Will re-assess tomorrow for possible discharge. Quality VTE Deep Vein Thrombosis/Pulmonary Embolism Present on Admission: No
[2021-01-26] MEDS: MAGNESIUM HYDROXIDE 30 ML UDC PO (13:27)
--- NOTE | 2021-01-26 16:23 | PT.IPTN ---
Current Diagnoses Other secondary scoliosis, thoracolumbar region (01/24/21) Spinal stenosis, lumbar region without neurogenic claudication (01/24/21) Postlaminectomy syndrome, not elsewhere classified (01/24/21) Surgery Performed Operation Date: 01/24/21 07:45 Actual Procedures p L3-4, L4-5 TLIF w/ posterior instrumentation - Lucinda South MD Physical Therapy Treatment Note M2 PT-IP Current Condition Start: 01/25/21 13:44 Freq: NEEDED Status: Active Protocol: Document 01/26/21 16:24 MA (Rec: 01/26/21 16:34 MA [id number]) Physical Therapy Current Condition Current Condition Evaluation Date 01/25/21 Treatment Diagnosis s/p L3-4, L4-5 fusion/lami; difficulty in walking Onset Date 01/24/21 Precautions Lumbar Precautions Log Roll,No Twisting,Limit Bending,Lifting Restriction of 10 lbs,Gait Belt above Incisional Area M3 PT-IP Subjective Start: 01/25/21 13:44 Freq: NEEDED Status: Active Protocol: Document 01/26/21 16:24 MA (Rec: 01/26/21 16:34 MA [id number]) Subjective Physical Therapy Visit Type Type Treatment Note Visit Start Time 16:00 Visit Stop Time 16:23 Total Visit Minutes 23 Number of COMMERCIAL ROOFER Visits 2 Physical Therapy Visit Comments Patient Comments c/o increase pain; initially lethargic Therapy Pain Assessment Pain When Pain Assessed During Mobility Pain Present Pain Present Pain Reported Location Back Intensity 9 Scale Used Numeric (0 - 10) Pain Management Techniques Distraction,Modification of Treatment,Re-positioning, Timing of Activity with Medications M4 PT-IP Mobility and Gait Start: 01/25/21 13:44 Freq: NEEDED Status: Active Protocol: Document 01/26/21 16:24 MA (Rec: 01/26/21 16:34 MA [id number]) PT-Bed Mobility Assessment Rolling Type of Rolling Log Rolling Level of Assist Maximal Assistance,2 Person Assistance Supine to Sit Supine to Sit Maximum Assistance,2 Person Assistance,Bedrails Sit to Supine Sit to Supine Maximum Assistance,2 Person Assistance,Bedrails Scooting Scooting to Edge of Bed Maximum Assistance Scooting Up and Down in Bed Maximum Assistance PT-Transfer Assessment Sit to and From Stand Sit to and from Stand Maximum Assistance,2 Person Assistance,Use of Upper Extremities Equipment Transfer Assistive Device Gait Belt,Front Wheeled Walker Orthotic/Prosthetic Devices or Brace: No Comments Mobility Comments Pt was Max Ax2 for all bed mobility and transfers. He was able to take 3 steps laterally toward HOB Max A x2 with FWW and gait belt. Pt unable to complete second sit< >stand transfer due to 9/10 pain. Gait Assessment Gait Gait Assistance Required: Maximum Assistance,2 Person Assist Comments Gait Comments Max Ax2 for 3 steps laterally toward HOB PT-Balance Assessment Sitting Balance and Reactions Static Sitting Balance Ability Fair Dynamic Sitting Balance Ability Poor Standing Balance and Reactions Static Standing Balance Ability Poor Dynamic Standing Balance Ability Poor Device Used FWW M5 PT-IP Objective Assessments Start: 01/25/21 13:44 Freq: NEEDED Status: Active Protocol: Document 01/25/21 11:20 AB (Rec: 01/25/21 13:59 AB [id number]) Orientation Orientation/Cognition Level of Alertness Alert Orientation Name,Place,Situation Safety Awareness Decreased Safety Awareness Memory Description Short Term Impaired Gross Range of Motion Lower Extremity ROM Assessment Within Functional Limits Strength Lower Extremity Strength Assessment Left Impaired Hip 3-/5 Knee 3-/5 Muscle Tone Muscle Tone WNL Yes M6 PT-IP Treatment Start: 01/25/21 13:44 Freq: NEEDED Status: Active Protocol: Document 01/26/21 16:24 MA (Rec: 01/26/21 16:34 MA [id number]) Physical Therapy Treatment Education Education Provided Precautions,Weight Bearing Status,Post-Op Packet,Safety M7 PT-IP Assessment and Plan Start: 01/25/21 13:44 Freq: NEEDED Status: Active Protocol: Document 01/26/21 16:24 MA (Rec: 01/26/21 16:34 MA [id number]) PT Summary Assessment and Plan Potential Rehabilitation Potential Fair Status of Condition at Evaluation Evolving Summary Impairments Pain,ROM,Strength,Balance, Coordination,Sensation,Tone, Cognition,Bed Mobility, Transfers,Gait,Activity Tolerance Assessment Summary Pt was Max Ax2 for all bed mobility and transfers. He was able to take 3 steps laterally toward HOB Max Ax2. Pt continues to be limited during therapy by pain but refuses pain meds this PM session due to hating feeling groggy. Goals Bed Mobility Goal Minimal Assistance Transfer Goal Minimal Assistance,Front Wheeled Walker Gait Goal Minimal Assistance,Front Wheel Walker Gait Distance 50 Other Goals improve bed mobility, transfers SBA and ambulation SBA using FWW 100 ft up/down 5 steps 1 rail SBA Days to Meet Goals 10 Frequency of Treatment Frequency Of Treatment Twice a Day Treatment Plan Physical Therapy Treatment Plan Bed Mobility Training,Transfer Training,Gait Training, Therapeutic Exercise,Balance Retraining,Post Op Education, Discharge Planning,Hot or Cold Pack,Neuromuscular Re-ed, Coordination Retraining,Manual Therapy Precautions Lumbar Precautions Log Roll,No Twisting,Limit Bending,Lifting Restriction of 10 lbs,Gait Belt above Incisional Area Recommendations To Nursing Amount of Assist Needed Mechanical Lift Discharge Recommendations PT Discharge Recommendations SNF Rehab Transportation Needs at Discharge Wheelchair/Cabulance,Stretcher /Ambulance
[2021-01-26] MEDS: TAMSULOSIN 0.4 MG CAPSULE 0.8 MG PO (20:35)
[2021-01-26] MEDS: SENNOSIDES 8.6 MG TABLET 17.2 MG PO (20:35)
[2021-01-26] MEDS: IBUPROFEN 400 MG TABLET 200 MG PO (22:47)
[2021-01-26] MEDS: diphenhydrAMINE 25 MG TABLET PO (22:47)
[2021-01-27] VITALS (7 sets, daily range): BP systolic 117–141; BP diastolic 62–71; PULSE 67–85; RESP 16–20; TEMP 36.1–37.8; O2SAT 92–96
[2021-01-27] MEDS: lisinopriL 20 MG TABLET 40 MG PO (09:24)
[2021-01-27] MEDS: METFORMIN HCL 500 MG TABLET PO (09:24)
[2021-01-27] MEDS: DOCUSATE 100 MG CAPSULE PO ×2 (09:24→21:29)
[2021-01-27] MEDS: ATORVASTATIN 20 MG TABLET 80 MG PO (09:24)
[2021-01-27] MEDS: MAGNESIUM HYDROXIDE 30 ML UDC PO (09:25)
--- NOTE | 2021-01-27 09:35 | PT.IPTN ---
Current Diagnoses Other secondary scoliosis, thoracolumbar region (01/24/21) Spinal stenosis, lumbar region without neurogenic claudication (01/24/21) Postlaminectomy syndrome, not elsewhere classified (01/24/21) Surgery Performed Operation Date: 01/24/21 07:45 Actual Procedures p L3-4, L4-5 TLIF w/ posterior instrumentation - Lucinda South MD Physical Therapy Treatment Note M2 PT-IP Current Condition Start: 01/25/21 13:44 Freq: NEEDED Status: Active Protocol: Document 01/27/21 10:24 MA (Rec: 01/27/21 10:41 MA [id number]) Physical Therapy Current Condition Current Condition Evaluation Date 01/25/21 Treatment Diagnosis s/p L3-4, L4-5 fusion/lami; difficulty in walking Onset Date 01/24/21 Precautions Lumbar Precautions Log Roll,No Twisting,Limit Bending,Lifting Restriction of 10 lbs,Gait Belt above Incisional Area M3 PT-IP Subjective Start: 01/25/21 13:44 Freq: NEEDED Status: Active Protocol: Document 01/27/21 10:24 MA (Rec: 01/27/21 10:41 MA [id number]) Subjective Physical Therapy Visit Type Type Treatment Note Visit Start Time 08:20 Visit Stop Time 09:35 Total Visit Minutes 29 Notes Split Treat 08:20-08:37 09:23-09:35 Number of [employer] Visits 3 Physical Therapy Visit Comments Patient Comments Pt reports having less pain and not taking pain meds. He is willing to work with therapy and sit up in chair. Therapy Pain Assessment Pain When Pain Assessed During Mobility Pain Present Pain Present Pain Reported Location Back Intensity 4 Scale Used Numeric (0 - 10) Pain Management Techniques Distraction,Modification of Treatment,Re-positioning M4 PT-IP Mobility and Gait Start: 01/25/21 13:44 Freq: NEEDED Status: Active Protocol: Document 01/27/21 10:24 MA (Rec: 01/27/21 10:41 MA [id number]) PT-Bed Mobility Assessment Rolling Type of Rolling Log Rolling Level of Assist Maximal Assistance,1 Person Assistance Supine to Sit Supine to Sit Maximum Assistance,2 Person Assistance,Head of Bed Elevated,Bedrails Sit to Supine Sit to Supine Maximum Assistance,2 Person Assistance,Bedrails PT-Transfer Assessment Sit to and From Stand Sit to and from Stand Moderate Assistance,1 Person Assistance,Use of Upper Extremities Equipment Transfer Assistive Device Gait Belt,Front Wheeled Walker Orthotic/Prosthetic Devices or Brace: No Transfers Transfer Destination Bed,Chair,Toilet Transfer Technique Stand Step Pivot Transfer Ability Level of Assist Moderate Assistance,2 Person Assistance Comments Mobility Comments Pt continues to have difficulty with bed moility requiring Max Ax2. He is Mod Ax1 for sit<>stands today and remembers to push from bed with UEs. He is able to stand- step pivot to room chair where pt sat up for 45 minutes to eat breakfast before walking 5 feet to toilet. Pt is Mod A x1 with grab bar for sit<> stands from toilet. He walked 10 feet back to bed where he was Max Ax2 for sit<>supine. Gait Assessment Gait Gait Assistance Required: Moderate Assistance,1 Person Assist Distance (Feet) 15 Able to Maintain Weight Bearing Status Yes During Gait Assistive Devices Assistive Device Gait Belt,Front Wheeled Walker Orthotic/Prosthetic Devices or Brace: No Gait Deviations General Gait Pattern Antalgic,Decreased Stride Length,Decreased Feet Clearance,Flexed Trunk Factors Limiting Gait Function Factors Limiting Gait Function Decreased Activity Tolerance, Pain Comments Gait Comments Pt is able to stand step pivot to room chair Mod Ax1. He walks 5 ft to bathroom Mod Ax1 and returns 10 ft to bed. PT-Balance Assessment Sitting Balance and Reactions Static Sitting Balance Ability Good Dynamic Sitting Balance Ability Fair Standing Balance and Reactions Static Standing Balance Ability Fair Dynamic Standing Balance Ability Fair Device Used FWW M5 PT-IP Objective Assessments Start: 01/25/21 13:44 Freq: NEEDED Status: Active Protocol: Document 01/25/21 11:20 AB (Rec: 01/25/21 13:59 AB [id number]) Orientation Orientation/Cognition Level of Alertness Alert Orientation Name,Place,Situation Safety Awareness Decreased Safety Awareness Memory Description Short Term Impaired Gross Range of Motion Lower Extremity ROM Assessment Within Functional Limits Strength Lower Extremity Strength Assessment Left Impaired Hip 3-/5 Knee 3-/5 Muscle Tone Muscle Tone WNL Yes M6 PT-IP Treatment Start: 01/25/21 13:44 Freq: NEEDED Status: Active Protocol: Document 01/27/21 10:24 MA (Rec: 01/27/21 10:41 MA [id number]) Physical Therapy Treatment Education Education Provided Precautions,Safety Other Treatments Other Treatment Performed Pt able to repeat spinal precautions today M7 PT-IP Assessment and Plan Start: 01/25/21 13:44 Freq: NEEDED Status: Active Protocol: Document 01/27/21 10:24 MA (Rec: 01/27/21 10:41 MA [id number]) PT Summary Assessment and Plan Potential Rehabilitation Potential Good Status of Condition at Evaluation Evolving Summary Impairments Pain,ROM,Strength,Balance, Coordination,Sensation,Tone, Cognition,Bed Mobility, Transfers,Gait,Activity Tolerance Assessment Summary Pt continues to have difficulty with bed mobility requiring Max Ax2 for supine<> sit. He is able to repeat spinal precautions this session and has 4/10 pain this Am during mobility. Once seated EOB he is able to perform sit<>stands Mod Ax1 from raised bed, room chair, and from toilet with grab bar for assistance. Due to pt continuing to require heavy assistance for bed mobility and moderate assistance during gait, pt is unsafe to return home with at this time. PT recommending SNF until pt is safe to d.c home with Goals Bed Mobility Goal Minimal Assistance Transfer Goal Minimal Assistance,Front Wheeled Walker Gait Goal Minimal Assistance,Front Wheel Walker Gait Distance 50 Other Goals improve bed mobility, transfers SBA and ambulation SBA using FWW 100 ft up/down 5 steps 1 rail SBA Days to Meet Goals 10 Frequency of Treatment Frequency Of Treatment Twice a Day Treatment Plan Physical Therapy Treatment Plan Bed Mobility Training,Transfer Training,Gait Training, Therapeutic Exercise,Balance Retraining,Post Op Education, Discharge Planning,Hot or Cold Pack,Neuromuscular Re-ed, Coordination Retraining,Manual Therapy Precautions Lumbar Precautions Log Roll,No Twisting,Limit Bending,Lifting Restriction of 10 lbs,Gait Belt above Incisional Area Recommendations To Nursing Amount of Assist Needed 2 Person Assist Discharge Recommendations PT Discharge Recommendations SNF Rehab Transportation Needs at Discharge Wheelchair/Cabulance
--- NOTE | 2021-01-27 10:29 | PM.PN.1 ---
Exam Vital Signs (past 8 hours): - 01/27/21 05:30 01/27/21 07:50 01/27/21 10:00 Temperature 97.0 F L 97.6 F Pulse Rate 69 76 67 Respiratory Rate 18 18 18 Blood Pressure 141/71 H 119/67 Pulse Oximetry 93 96 96 Fraction of Inspired Oxygen 24 Oxygen Delivery Method Nasal Cannula Oxygen Flow Rate 0 Objective Labs Result Diagrams: 01/25/21 05:40 PFSH Medical History Arthritis Bradycardia Diabetes (~2019) Easy bruisability GERD (gastroesophageal reflux disease) HTN (hypertension) Hyperlipidemia Kidney stones Numbness and tingling Osteoarthritis Prostate cancer (2019) Surgical History History of bilateral carpal tunnel release History of total left hip arthroplasty History of total right hip arthroplasty Hx of arthroscopy of right knee Hx of heart artery stent Hx of lithotripsy Hx of microdiscectomy (04/25/18) Hx of nasal septoplasty Hx of tonsillectomy S/P CABG x 4 Social History household members: spouse Smoking Status: Current every day smoker alcohol intake: current Assessment & Plan Assessment & Plan narrative: POD#3 s/p lumbar fusion Progressing slowly with PT. Patient's dressing is clean dry intact. Patient is neuro intact on exam. No s/s of DVT. Will mobilize more with PT/OT today. Will plan for SNF discharge once approved, patient's insurance require authorization. Possible d/c to SNF tomorrow. Quality VTE Deep Vein Thrombosis/Pulmonary Embolism Present on Admission: No
--- NOTE | 2021-01-27 13:19 | CM.DPC ---
Addendum entered by RAFITA Traore 01/27/21 14:25: ADD: Return call from Cary at [facility] stating they have openings and willing to review and can start auth once they review. COLIN faxed to [phone]. SW to follow for [facility], [facility], and [facility] review and insurance auth. BF Original Note: DCP SNF Planning: Per Ortho MD and PT/OT, pt not ambulating and requiring 1PA mod-max and not safe for d/c home but will need SNF rehab. COLIN spoke to Quita SMILEY and updated on need for [employer] insurance auth and accepting SNF and therefore no plan in place to d/c yet today. SW spoke to pt's spouse regarding above and she confirms since they live on [address] preference would be [facility] or possibly [facility]. SNF's attempted that are [employer] Contracted: [facility]- they had been contracted but currently are not active so they could work on one time contract but since out of network a fairly high copay out of pocket. [facility]- not contracted [facility]- contracted but already have their limit on [employer] pts as [employer] reimburses poorly [facility]- unsure when they will have male bed availability but willing to review. [facility]- not contracted now [facility]- no admissions staff until tomorrow Zander Townsend at [facility]- left msg on admission phone [phone] [facility]- no answer [facility]- contracted and have a male opening tomorrow, faxed and they will review and can begin auth. COLIN called spouse and updated on above and her preference would be [facility] due to location and proximity but SW discussed that pt will be medically stable to d/c tomorrow and will have to go with whichever facility is contracted with [employer] and can accept tomorrow and spouse acknowledges understanding and agreeable. Plan: SW to follow closely with [facility] review and confirm they are starting auth and can accept as well as [facility] on bed availability. RAFITA Traore
[2021-01-27] MEDS: BISACODYL 10 MG SUPP PR (14:18)
--- NOTE | 2021-01-27 14:45 | OT.IPNOTE ---
Pt declined OT services d/t just had suppository and awaiting BM. Will hold and continue to follow. Scheduling did not allow this investigative writer to follow up in PM.
[2021-01-27] MEDS: SENNOSIDES 8.6 MG TABLET 17.2 MG PO (21:29)
[2021-01-27] MEDS: TAMSULOSIN 0.4 MG CAPSULE 0.8 MG PO (21:29)
[2021-01-27] MEDS: hydrOXYzine pamoate 25 MG CAPSULE PO (21:35)
[2021-01-28] VITALS (7 sets, daily range): BP systolic 115–129; BP diastolic 62–74; PULSE 67–77; RESP 16–20; TEMP 36.2–37.1; O2SAT 91–97
[2021-01-28] MEDS: IBUPROFEN 200 MG TABLET PO ×2 (03:04→21:40)
[2021-01-28] MEDS: OXYCODONE IR 5 MG TABLET 10 MG PO ×5 (03:04→21:41)
[2021-01-28] MEDS: ATORVASTATIN 20 MG TABLET 80 MG PO (08:40)
[2021-01-28] MEDS: METFORMIN HCL 500 MG TABLET PO (08:41)
[2021-01-28] MEDS: DOCUSATE 100 MG CAPSULE PO ×2 (08:41→21:40)
[2021-01-28] MEDS: lisinopriL 20 MG TABLET 40 MG PO (08:41)
[2021-01-28] MEDS: MAGNESIUM HYDROXIDE 30 ML UDC PO (08:41)
--- NOTE | 2021-01-28 10:18 | PT.IPTN ---
Current Diagnoses Other secondary scoliosis, thoracolumbar region (01/24/21) Spinal stenosis, lumbar region without neurogenic claudication (01/24/21) Postlaminectomy syndrome, not elsewhere classified (01/24/21) Surgery Performed Operation Date: 01/24/21 07:45 Actual Procedures p L3-4, L4-5 TLIF w/ posterior instrumentation - Lucinda South MD Physical Therapy Treatment Note M2 PT-IP Current Condition Start: 01/25/21 13:44 Freq: NEEDED Status: Active Protocol: Document 01/27/21 10:24 MA (Rec: 01/27/21 10:41 MA [id number]) Physical Therapy Current Condition Current Condition Evaluation Date 01/25/21 Treatment Diagnosis s/p L3-4, L4-5 fusion/lami; difficulty in walking Onset Date 01/24/21 Precautions Lumbar Precautions Log Roll,No Twisting,Limit Bending,Lifting Restriction of 10 lbs,Gait Belt above Incisional Area M3 PT-IP Subjective Start: 01/25/21 13:44 Freq: NEEDED Status: Active Protocol: Document 01/28/21 10:18 AB (Rec: 01/28/21 12:58 AB [id number]) Subjective Physical Therapy Visit Type Type Treatment Note Visit Start Time 10:18 Visit Stop Time 10:37 Total Visit Minutes 19 Number of RELIEF MASTER Visits 0 Physical Therapy Visit Comments Patient Comments agreeable to do PT and requested to use the toilet M4 PT-IP Mobility and Gait Start: 01/25/21 13:44 Freq: NEEDED Status: Active Protocol: Document 01/28/21 10:18 AB (Rec: 01/28/21 12:58 AB [id number]) PT-Bed Mobility Assessment Rolling Type of Rolling Log Rolling Level of Assist Maximal Assistance Supine to Sit Supine to Sit Maximum Assistance PT-Transfer Assessment Sit to and From Stand Sit to and from Stand Maximum Assistance,2 Person Assistance,Use of Upper Extremities Equipment Transfer Assistive Device Gait Belt,Front Wheeled Walker Orthotic/Prosthetic Devices or Brace: No Transfers Transfer Destination Toilet Transfer Technique ambulated using FWW Transfer Ability Level of Assist Maximum Assistance,2 Person Assistance,Use of Upper Extremities Comments Mobility Comments pt requesting to use the toilet. completed log roll supine to sit max A and max cues. used bed rail for support. completed sit to stand from EOB x 2 attempts max A x 2 and max cues. (+) L knee buckling. pt stated that he is just weak. refused to use the bedside commode. completed sit to stand again max A and max uces and ambulated to the toilet using FWW max A x 2 and max cues. required max A for L knee stabilization. compelted sit to stand from the toilet using grab bar max A x 2 and pt was able to maintain standing using FWW for support max A while NAC assisted the hygiene care. pt ambulated to the chair using FWW max A x 2. positioned pt on the chair. call light and table placed within reach. completed LAQs and glute sets with 5 sec hold in seated position. Gait Assessment Gait Gait Assistance Required: Maximum Assistance,2 Person Assist Distance (Feet) 12 Able to Maintain Weight Bearing Status Yes During Gait Assistive Devices Assistive Device Gait Belt,Front Wheeled Walker Orthotic/Prosthetic Devices or Brace: No Gait Deviations General Gait Pattern Antalgic,Decreased Stride Length,Decreased Feet Clearance,Step-to Gait Factors Limiting Gait Function Factors Limiting Gait Function Decreased Activity Tolerance, Decreased Strength,Difficulty Following Directions,Limited Range of Motion,Pain,Poor Balance,Poor Safety Awareness Comments Gait Comments pls refer to mobility section for details M5 PT-IP Objective Assessments Start: 01/25/21 13:44 Freq: NEEDED Status: Active Protocol: Document 01/25/21 11:20 AB (Rec: 01/25/21 13:59 AB [id number]) Orientation Orientation/Cognition Level of Alertness Alert Orientation Name,Place,Situation Safety Awareness Decreased Safety Awareness Memory Description Short Term Impaired Gross Range of Motion Lower Extremity ROM Assessment Within Functional Limits Strength Lower Extremity Strength Assessment Left Impaired Hip 3-/5 Knee 3-/5 Muscle Tone Muscle Tone WNL Yes M6 PT-IP Treatment Start: 01/25/21 13:44 Freq: NEEDED Status: Active Protocol: Document 01/28/21 10:18 AB (Rec: 01/28/21 12:58 AB [id number]) Physical Therapy Treatment Exercises Exercises Ankle Pumps,Seated Knee Flexion/Extension Education Education Provided Precautions,Safety M7 PT-IP Assessment and Plan Start: 01/25/21 13:44 Freq: NEEDED Status: Active Protocol: Document 01/28/21 10:18 AB (Rec: 01/28/21 12:58 AB [id number]) PT Summary Assessment and Plan Potential Rehabilitation Potential Good Summary Impairments Pain,ROM,Strength,Balance, Coordination,Sensation,Tone, Cognition,Bed Mobility, Transfers,Gait,Activity Tolerance Progress Towards Goals Progressing Toward Goals,Slow Progress due to Activity Tolerance,Slow Progress - Other Assessment Summary pt continues to require max A x 2 and max cues. (+) L knee buckling with standing requiring max A to stabilize. pt will require SNF rehab to improve strength and mobility independence. Goals Bed Mobility Goal Minimal Assistance Transfer Goal Minimal Assistance,Front Wheeled Walker Gait Goal Minimal Assistance,Front Wheel Walker Gait Distance 50 Other Goals improve bed mobility, transfers SBA and ambulation SBA using FWW 100 ft up/down 5 steps 1 rail SBA Days to Meet Goals 10 Frequency of Treatment Frequency Of Treatment Twice a Day Treatment Plan Physical Therapy Treatment Plan Bed Mobility Training,Transfer Training,Gait Training, Therapeutic Exercise,Balance Retraining,Post Op Education, Discharge Planning,Hot or Cold Pack,Neuromuscular Re-ed, Coordination Retraining,Manual Therapy Precautions Lumbar Precautions Log Roll,No Twisting,Limit Bending,Lifting Restriction of 10 lbs,Gait Belt above Incisional Area Recommendations To Nursing Amount of Assist Needed 2 Person Assist Discharge Recommendations PT Discharge Recommendations SNF Rehab Transportation Needs at Discharge Wheelchair/Cabulance
--- NOTE | 2021-01-28 11:22 | P.PN_ITS ---
Subjective Subjective Date Patient Seen: 01/28/21 Time Patient Seen: 11:22 Interval history: Patient states he is doing well overall and is in moderate discomfort at rest. At this time he denies fever, chills, nausea, chest pain, shortness of breath, or urinary retention. He reports good sensation throughout the bilateral lower extremities. Exam Vital Signs (past 8 hours): - 01/28/21 08:00 Temperature 97.2 F L Pulse Rate 67 Respiratory Rate 16 Blood Pressure 115/69 Pulse Oximetry 93 Fraction of Inspired Oxygen 24 Oxygen Delivery Method Room Air Oxygen Flow Rate 0 Narrative Exam Narrative: 70-year-old male postop day 4. Patient is resting comfortably in room chair, is in no acute distress, is alert and oriented x3. Skin is warm and dry, and the skin surrounding the incision site is free of erythema, warmth, induration, or discharge. Good sensation appreciated throughout the bilateral lower extremities to light touch. Ankle dorsiflexion, plantar flexion, eversion, inversion performed bilaterally without difficulty or discomfort. Calves are soft nontender, negative Homans sign. DP pulses palpated bilaterally. No other signs of DVT appreciated. Const General: cooperative, healthy appearing and comfortable Resp Effort & Inspection: normal respiratory effort and able to speak in complete sentences Skin General: no rashes or lesions noted Objective Labs Result Diagrams: 01/25/21 05:40 PFSH Medical History Arthritis Bradycardia Diabetes (~2019) Easy bruisability GERD (gastroesophageal reflux disease) HTN (hypertension) Hyperlipidemia Kidney stones Numbness and tingling Osteoarthritis Prostate cancer (2019) Surgical History History of bilateral carpal tunnel release History of total left hip arthroplasty History of total right hip arthroplasty Hx of arthroscopy of right knee Hx of heart artery stent Hx of lithotripsy Hx of microdiscectomy (04/25/18) Hx of nasal septoplasty Hx of tonsillectomy S/P CABG x 4 Social History household members: spouse Smoking Status: Current every day smoker alcohol intake: current Assessment & Plan Post-op Postoperative Procedures: Procedures Operation Date: 01/24/21 07:45 Actual Procedure Side Surgeon p L3-4, L4-5 TLIF w/ posterior instrumentation Lucinda South MD Postoperative day: 4 Postoperative status: doing well and marginal pain control Postoperative plan: ambulate Postoperative plan narrative: Patient is to continue working on ambulation with the assistance of a front wheeled walker with physical therapy. Current pain management regimen is to be continued. Patient is to avoid bending, twisting, or lifting. Pending care home facility acceptance likely transfer either today or tomorrow. Quality VTE Deep Vein Thrombosis/Pulmonary Embolism Present on Admission: No
--- NOTE | 2021-01-28 11:46 | CM.DPC ---
DCP: continued: Case received and discussed today with wei Hugo, RN Yehuda, pt and his Nia (by phone). KEESHA Hugo stated that pt would be stable for d/c to snf setting when an accepting facility and the insurance auth for same is in place. Pt initially saying he did not want to go into any snf but after further discussion with team and his he is again agreeable to same. He has progressed from needing og lift to an assist of 2 and PT Loly will see him today. Debra/ARLEY is following up on the snf calls (see detailed note of yesterday by Will Enrique). [facility] have confirmed: full [facility] at [facility] and [facility] are reviewing and Debra following on these. Pt has provided his COVID vaccine card (fully with Jamie) and this will be faxed to the accepting snf. PASRR/completed 01/26 by Will Valencia. Agreed to update Wei Hugo prn.
--- NOTE | 2021-01-28 13:55 | PT.IPTN ---
Current Diagnoses Other secondary scoliosis, thoracolumbar region (01/24/21) Spinal stenosis, lumbar region without neurogenic claudication (01/24/21) Postlaminectomy syndrome, not elsewhere classified (01/24/21) Surgery Performed Operation Date: 01/24/21 07:45 Actual Procedures p L3-4, L4-5 TLIF w/ posterior instrumentation - Lucinda South MD Physical Therapy Treatment Note M2 PT-IP Current Condition Start: 01/25/21 13:44 Freq: NEEDED Status: Active Protocol: Document 01/27/21 10:24 MA (Rec: 01/27/21 10:41 MA [id number]) Physical Therapy Current Condition Current Condition Evaluation Date 01/25/21 Treatment Diagnosis s/p L3-4, L4-5 fusion/lami; difficulty in walking Onset Date 01/24/21 Precautions Lumbar Precautions Log Roll,No Twisting,Limit Bending,Lifting Restriction of 10 lbs,Gait Belt above Incisional Area M3 PT-IP Subjective Start: 01/25/21 13:44 Freq: NEEDED Status: Active Protocol: Document 01/28/21 13:55 AB (Rec: 01/28/21 15:58 AB [id number]) Subjective Physical Therapy Visit Type Type Treatment Note Visit Start Time 13:55 Visit Stop Time 14:25 Total Visit Minutes 30 Number of FINE UNHAIRER Visits 0 Physical Therapy Visit Comments Patient Comments pt is agreeable to do PT Therapy Pain Assessment Pain When Pain Assessed At Rest Pain Present Pain Present Pain Reported Location Back Intensity 6 Scale Used increases to 7/10 with mobility Pain Management Techniques Distraction,Modification of Treatment,Re-positioning, Timing of Activity with Medications M4 PT-IP Mobility and Gait Start: 01/25/21 13:44 Freq: NEEDED Status: Active Protocol: Document 01/28/21 13:55 AB (Rec: 01/28/21 15:58 AB [id number]) PT-Bed Mobility Assessment Rolling Type of Rolling Log Rolling Level of Assist Maximal Assistance Supine to Sit Supine to Sit Maximum Assistance,1 Person Assistance,Bedrails Sit to Supine Sit to Supine Maximum Assistance,1 Person Assistance,Bedrails PT-Transfer Assessment Sit to and From Stand Sit to and from Stand Maximum Assistance,2 Person Assistance,Use of Upper Extremities Equipment Transfer Assistive Device Gait Belt,Front Wheeled Walker Orthotic/Prosthetic Devices or Brace: No Transfers Transfer Destination Toilet Transfer Technique ambulated using FWW Transfer Ability Level of Assist Maximum Assistance,2 Person Assistance,Use of Upper Extremities Comments Mobility Comments pt supine in bed and agreed to do PT. completed supine to sit max A and max cues and pt used bed rail to assist. pt requested to use the toilet and completed sit to stand x 2 attempts max A x 2 and max cues. continues to have L knee buckling during standing requiring max A x 1-2 for stability. pt ambulated to the toilet using FWW ~ 12 ft max a x 2 and max cues. completed sit to stand from the toilet using grab bar max A x 2 and max cues. maintained standing max A x 11 -2 using FWW for support while NAC assisted with hygiene care. pt requested to go back in bed and ambulate to the bed using FWW max A x 2 and max cues. completed sit to supine max A and max cues. agreed to do supine exercises and completed. positioned in bed. call light and table placed within reach. Gait Assessment Gait Gait Assistance Required: Maximum Assistance Distance (Feet) 12 Able to Maintain Weight Bearing Status Yes During Gait Assistive Devices Assistive Device Gait Belt,Front Wheeled Walker Orthotic/Prosthetic Devices or Brace: No Gait Deviations General Gait Pattern Decreased Stride Length, Decreased Feet Clearance Factors Limiting Gait Function Factors Limiting Gait Function Decreased Activity Tolerance, Decreased Sensation,Decreased Strength,Difficulty Following Directions,Limited Range of Motion,Pain,Poor Balance,Poor Safety Awareness Comments Gait Comments pls refer to mobility section for details M5 PT-IP Objective Assessments Start: 01/25/21 13:44 Freq: NEEDED Status: Active Protocol: Document 01/25/21 11:20 AB (Rec: 01/25/21 13:59 AB [id number]) Orientation Orientation/Cognition Level of Alertness Alert Orientation Name,Place,Situation Safety Awareness Decreased Safety Awareness Memory Description Short Term Impaired Gross Range of Motion Lower Extremity ROM Assessment Within Functional Limits Strength Lower Extremity Strength Assessment Left Impaired Hip 3-/5 Knee 3-/5 Muscle Tone Muscle Tone WNL Yes M6 PT-IP Treatment Start: 01/25/21 13:44 Freq: NEEDED Status: Active Protocol: Document 01/28/21 13:55 AB (Rec: 01/28/21 15:58 AB [id number]) Physical Therapy Treatment Exercises Exercises Ankle Pumps,Heel Slides,Short Arc Quads Education Education Provided Precautions,Safety M7 PT-IP Assessment and Plan Start: 01/25/21 13:44 Freq: NEEDED Status: Active Protocol: Document 01/28/21 13:55 AB (Rec: 01/28/21 15:58 AB [id number]) PT Summary Assessment and Plan Potential Rehabilitation Potential Good Summary Impairments Pain,ROM,Strength,Balance, Coordination,Sensation,Tone, Cognition,Bed Mobility, Transfers,Gait,Activity Tolerance Progress Towards Goals Slow Progress due to Pain,Slow Progress due to Medical Issues,Slow Progress due to Activity Tolerance Assessment Summary pt continues to require max A x 2with mobility and continues to have L knee buckling during standing and ambulation . pt will require SNF rehab to improve strength and mobility. Goals Bed Mobility Goal Minimal Assistance Transfer Goal Minimal Assistance,Front Wheeled Walker Gait Goal Minimal Assistance,Front Wheel Walker Gait Distance 50 Other Goals improve bed mobility, transfers SBA and ambulation SBA using FWW 100 ft up/down 5 steps 1 rail SBA Days to Meet Goals 10 Frequency of Treatment Frequency Of Treatment Twice a Day Treatment Plan Physical Therapy Treatment Plan Bed Mobility Training,Transfer Training,Gait Training, Therapeutic Exercise,Balance Retraining,Post Op Education, Discharge Planning,Hot or Cold Pack,Neuromuscular Re-ed, Coordination Retraining,Manual Therapy Precautions Lumbar Precautions Log Roll,No Twisting,Limit Bending,Lifting Restriction of 10 lbs,Gait Belt above Incisional Area Recommendations To Nursing Amount of Assist Needed 2 Person Assist Discharge Recommendations PT Discharge Recommendations SNF Rehab Transportation Needs at Discharge Wheelchair/Cabulance
--- NOTE | 2021-01-28 14:35 | CM.DPNOTE ---
Faxed records to [facility] [phone] for referral that she requested. Ref. #[id number]. Fax confirmation received. Debra Varela CM Asst.
--- NOTE | 2021-01-28 15:37 | OT.IP.TRT ---
Current Diagnoses Other secondary scoliosis, thoracolumbar region (01/24/21) Spinal stenosis, lumbar region without neurogenic claudication (01/24/21) Postlaminectomy syndrome, not elsewhere classified (01/24/21) Surgery Performed Operation Date: 01/24/21 07:45 Actual Procedures p L3-4, L4-5 TLIF w/ posterior instrumentation - Lucinda South MD Occupational Therapy Treatment Note M2 OT-IP Current Condition Start: 01/25/21 12:45 Freq: Status: Active Protocol: Document 01/25/21 12:45 CGR (Rec: 01/25/21 13:02 CGR [id number]) Occupational Therapy Current Condition Current Condition Evaluation Date 01/25/21 Treatment Diagnosis TLIF L3-5 Diagnosis Onset Date 01/24/21 Post Operative Precautions Lumbar Precautions Log Roll,No Twisting,Limit Bending,Lifting Restriction of 10 lbs,Gait Belt above Incisional Area M3 OT- IP Subjective and Pain Start: 01/25/21 12:45 Freq: Status: Active Protocol: Document 01/28/21 15:43 [facility] (Rec: 01/28/21 15:51 [facility] [id number]) OT- Subjective Occupational Therapy Visit Type Type Treatment Note Visit Start Time 15:24 Visit Stop Time 15:37 Total Visit Minutes 13 Occupational Therapy Visit Comments Patient Comments Pt too tired from doing PT earlier but agreed to talk to Ot regarding equipment need and go over back precautions. Pt's in the room during the session. Patient/Caregiver Goals To go to skilled rehab prior to going home. OT Pain Assessment Pain When Pain Assessed During Mobility Pain Present Pain Present Pain Reported M4 OT- IP ADL's Start: 01/25/21 12:45 Freq: Status: Active Protocol: Document 01/28/21 15:43 [facility] (Rec: 01/28/21 15:51 [facility] [id number]) OT [id number] Comments OT Self-Feeding Comments Not meal time OT ADL-Grooming Comments OT Grooming Comments Not performed OT ADL-Oral Care Comments Oral Care Comments Educated when able to stand at this sink to do grooming needs best to just sip into a cup ore hinge at his hips to spit into the sink to best follow his back precautions. OT ADL-Dressing Comments OT Dressing Comments Pt states his has all LB dressing needs from prior surgery. OT ADL-Toileting Comments OT Toileting Comments Pt states prior to the surgery had difficulty to wipe after a bowel movement and had to twist a lot. Able to show pt and toilet paper aid and option of bidet pending finances or that his will have to assist for his hygiene needs. OT ADL-Bathing Comments OT Bathing Comments Pt states has 2 built in corner seats and also a tub/ shower combo. Able to educated and show pt and picture of tub bench option pending pt 's progress with skilled rehab . M5 OT- IP IADL's Start: 01/25/21 12:45 Freq: Status: Active Protocol: Document 01/25/21 12:45 CGR (Rec: 01/25/21 13:02 CGR [id number]) OT-Instrumental Activities of Daily Living Deficits IADL Deficits Identified No Deficits Home Safety Awareness Awareness of Need for Assistance at Home Good Awareness Ability to Problem Solve Emergency Able to Problem Solve Situations Medication Management Medication Management No Deficits Identified Money Management Money Management No Deficits Identified Meal Preparation Meal Preparation Caregiver Provides Assist Regional Merchandising Manager Regional Merchandising Manager Caregiver Provides Assist Driving Driving Comments 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 Pt a bit groggy and falling asleep during Ot session. Able to go over ADl equipment needs and techniques to best follow for ADl needs . To check on pt earlier tomorrow for OT treatment. Pt to go to skilled rehab when medically stable. Goals Grooming Goal Independent Dressing Goal Independent Toileting Goal Independent Bathing Goal Independent Toilet Transfer Goal Independent Shower Transfer Goal Independent Days to Meet Goals 30 Frequency of Treatment Frequency Of Treatment Once a Day Treatment Plan OT Treatment Plan ADL Training,Functional Mobility,Patient/Family Education,Discharge Planning Other Treatment Recommendations and [place] [facility] [place] 2 [place] Treatment Focus assist. Discharge Recommendations OT Discharge Recommendations SNF Rehab Transportation Needs at Discharge Wheelchair/Cabulance
--- NOTE | 2021-01-28 16:04 | CM.DPNOTE ---
Followed up with phone calls to [facility] at [facility], , spoke to Moon and she will review info; [facility] [phone] and [facility]. Debra Varela CM Asst.
[2021-01-28] MEDS: hydrOXYzine pamoate 25 MG CAPSULE PO ×2 (17:07→21:41)
[2021-01-28] MEDS: SENNOSIDES 8.6 MG TABLET 17.2 MG PO (21:40)
[2021-01-28] MEDS: TAMSULOSIN 0.4 MG CAPSULE 0.8 MG PO (21:40)
[2021-01-28] MEDS: ACETAMINOPHEN 325 MG TABLET 650 MG PO (21:41)
--- NOTE | 2021-01-28 23:40 | PC.NURSE ---
shift summary- POD-4. A/O x4, 95% RA LS clear, denies SOB. Lower back coversite drsg CDI, PP+, medicated with oxy 10mg PO Q-3hr for 7/10 pain, admin one vistaril 25mg along with oxy, pt reports effective. NO IV access. using urinal indep. 2PA FWW belt to ambulate. Awaiting placement at SNF. Call light in reach and bed alarm on.
[2021-01-29] VITALS: BP 105/72; PULSE 66; RESP 18; TEMP 36.5; O2SAT 91
[2021-01-29 04:30] VITALS: BP 99/56; PULSE 56; RESP 18; TEMP 36.4; O2SAT 93
[2021-01-29 08:08] VITALS: PULSE 64; RESP 16; TEMP 36.9; O2SAT 94
--- NOTE | 2021-01-29 08:22 | P.PN_ITS ---
Subjective Subjective Date Patient Seen: 01/29/21 Time Patient Seen: 08:22 Interval history: Patient states he is doing well overall and is in mild discomfort at rest. At this time denies fever, chills, nausea, chest pain, shortness of breath, or urinary retention. He reports good sensation throughout the bilateral lower extremities. Exam Vital Signs (past 8 hours): - 01/29/21 04:30 Temperature 97.5 F L Pulse Rate 56 L Respiratory Rate 18 Blood Pressure 99/56 L Pulse Oximetry 93 Fraction of Inspired Oxygen 24 Oxygen Delivery Method Room Air Oxygen Flow Rate 0 Narrative Exam Narrative: 70-year-old male postop day 5. Patient is resting comfortably in bed, is in no acute distress, and is alert and oriented x3. Skin is warm and dry, and the skin surrounding the incision site is free of erythema, warmth, induration, or discharge. Dressing over the incision site is clean, dry, and intact. Good sensation appreciated throughout the bilateral lower extremities to light touch. Ankle dorsiflexion, plantar flexion, eversion, inversion performed bilaterally without difficulty or discomfort. Calves are soft and nontender, negative Homans sign. No other signs of DVT appreciated. Const General: cooperative, healthy appearing and comfortable Resp Effort & Inspection: normal respiratory effort and able to speak in complete sentences Skin General: no rashes or lesions noted Objective Labs Result Diagrams: 01/25/21 05:40 [facility] Medical History Arthritis Bradycardia Diabetes (~2019) Easy bruisability GERD (gastroesophageal reflux disease) HTN (hypertension) Hyperlipidemia Kidney stones Numbness and tingling Osteoarthritis Prostate cancer (2019) Surgical History History of bilateral carpal tunnel release History of total left hip arthroplasty History of total right hip arthroplasty Hx of arthroscopy of right knee Hx of heart artery stent Hx of lithotripsy Hx of microdiscectomy (04/25/18) Hx of nasal septoplasty Hx of tonsillectomy S/P CABG x 4 Social History household members: spouse Smoking Status: Current every day smoker alcohol intake: current Assessment & Plan Post-op Postoperative Procedures: Procedures Operation Date: 01/24/21 07:45 Actual Procedure Side Surgeon p L3-4, L4-5 TLIF w/ posterior instrumentation Lucinda South MD Postoperative day: 5 Postoperative status: doing well Postoperative plan: ambulate Postoperative plan narrative: Patient is to continue working on ambulation with the assistance of a front wheeled walker with physical therapy. He is to remain weight-bearing as tolerated. Current pain management regimen is to be continued as it is adequately controlled the patient's pain level. Plan for transfer to nursing home facility today pending acceptance. Quality VTE Deep Vein Thrombosis/Pulmonary Embolism Present on Admission: No
[2021-01-29 09:07] VITALS: BP 128/71; PULSE 64
[2021-01-29] MEDS: OXYBUTYNIN 5 MG ER TAB PO (09:10)
[2021-01-29] MEDS: METFORMIN HCL 500 MG TABLET PO (09:11)
[2021-01-29] MEDS: DOCUSATE 100 MG CAPSULE PO (09:11)
[2021-01-29] MEDS: ATORVASTATIN 20 MG TABLET 80 MG PO (09:11)
[2021-01-29] MEDS: OXYCODONE IR 5 MG TABLET 10 MG PO ×2 (09:16→13:12)
[2021-01-29] MEDS: MAGNESIUM HYDROXIDE 30 ML UDC PO (09:16)
[2021-01-29] MEDS: ACETAMINOPHEN 325 MG TABLET 650 MG PO (09:17)
--- NOTE | 2021-01-29 10:20 | OT.IP.TRT ---
Current Diagnoses Other secondary scoliosis, thoracolumbar region (01/24/21) Spinal stenosis, lumbar region without neurogenic claudication (01/24/21) Postlaminectomy syndrome, not elsewhere classified (01/24/21) Surgery Performed Operation Date: 01/24/21 07:45 Actual Procedures p L3-4, L4-5 TLIF w/ posterior instrumentation - Lucinda South MD Occupational Therapy Treatment Note M2 OT-IP Current Condition Start: 01/25/21 12:45 Freq: Status: Active Protocol: Document 01/25/21 12:45 CGR (Rec: 01/25/21 13:02 CGR [id number]) Occupational Therapy Current Condition Current Condition Evaluation Date 01/25/21 Treatment Diagnosis TLIF L3-5 Diagnosis Onset Date 01/24/21 Post Operative Precautions Lumbar Precautions Log Roll,No Twisting,Limit Bending,Lifting Restriction of 10 lbs,Gait Belt above Incisional Area M3 OT- IP Subjective and Pain Start: 01/25/21 12:45 Freq: Status: Active Protocol: Document 01/29/21 13:03 [facility] (Rec: 01/29/21 13:20 [facility] [id number]) OT- Subjective Occupational Therapy Visit Type Type Treatment Note Visit Start Time 10:10 Visit Stop Time 10:20 Total Visit Minutes 10 Occupational Therapy Visit Comments Patient Comments Work with PRODUCT STRATEGY DIRECTOR to assess to see if pt able to take private car to skilled rehab versus [facility] transport. Patient/Caregiver Goals To go to skilled rehab prior to going home. OT Pain Assessment Pain When Pain Assessed During Mobility Pain Present Pain Present Pain Reported M4 OT- IP ADL's Start: 01/25/21 12:45 Freq: Status: Active Protocol: Document 01/29/21 13:03 CCC (Rec: 01/29/21 13:20 [facility] [id number]) OT [id number] Comments OT Self-Feeding Comments Not meal time OT ADL-Grooming Comments OT Grooming Comments Not performed OT ADL-Oral Care Comments Oral Care Comments Pt states not able to tolerate to stand today and not wanting to try standing in front of the sink. M5 OT- IP IADL's Start: 01/25/21 12:45 Freq: Status: Active Protocol: Document 01/25/21 12:45 CGR (Rec: 01/25/21 13:02 CGR [id number]) OT-Instrumental Activities of Daily Living Deficits IADL Deficits Identified No Deficits Home Safety Awareness Awareness of Need for Assistance at Home Good Awareness Ability to Problem Solve Emergency Able to Problem Solve Situations Medication Management Medication Management No Deficits Identified Money Management Money Management No Deficits Identified Meal Preparation Meal Preparation Caregiver Provides Assist Photo Cartographer Photo Cartographer Caregiver Provides Assist Driving Driving Comments 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 M7 OT- IP Mobility and Balance Start: 01/25/21 12:45 Freq: Status: Active Protocol: Document 01/29/21 13:03 [facility] (Rec: 01/29/21 13:20 [facility] [id number]) OT- Bed Mobility Assessment Sit to Supine Sit to Supine Assist Maximum Assistance,2 Person Assistance OT-Transfer Assessment Sit to and From Stand Sit to and from Stand Maximum Assistance,2 Person Assistance Transfers Transfer Ability Minimal Assistance,2 Person Assistance Devices Transfer Assistive Devices Gait Belt,Front Wheeled Walker Comments Mobility Comments Pt still having difficulty to come to stand and still needidgn MAX A X 2 to FWW. After up on his feet able to move better with DUNIA x2 with FWW for transfer. OT- Gait Assessment Comments Gait Ability Comments Just mainly transfer as pt too tired to do any more at this time. OT- Balance Assessment Sitting Balance and Reactions Static Sitting Balance Ability Good M8 OT- IP Objective Assessments Start: 01/25/21 12:45 Freq: Status: Active Protocol: Document 01/25/21 12:45 CGR (Rec: 01/25/21 13:02 CGR [id number]) OT Gross Range of Motion Upper Extremity Range of Motion Assessment Within Functional Limits OT Strength Upper Extremity Strength Assessment Within Functional Limits Comments Strength Comments 4/5 throughout OT- Coordination Assessment Upper Extremity Finger to Nose Test Within Functional Limits Finger Tapping Test Within Functional Limits OT-Muscle Tone Assessment Muscle Tone WNL Yes OT Sensation Assessment Edema Edema Absent M9 OT- IP Assessment and Plan Start: 01/25/21 12:45 Freq: Status: Active Protocol: Document 01/29/21 13:03 [facility] (Rec: 01/29/21 13:20 [facility] [id number]) OT Summary Assessment and Plan Potential Rehabilitation Potential Good Analytic Complexity at Evaluation Moderate Summary Progress Towards Goals Progressing Toward Goals,Slow Progress due to Activity Tolerance Assessment Summary At this time , best for pt to be transported by [facility] van to skilled rehab for safety as pt 's cars are either too low or too high( truck with step) and needing MAX A X 2 to stand at this time. Pt to go to skilled rehab when stable. Goals Grooming Goal Independent Dressing Goal Independent Toileting Goal Independent Bathing Goal Independent Toilet Transfer Goal Independent Shower Transfer Goal Independent Days to Meet Goals 30 Frequency of Treatment Frequency Of Treatment Once a Day Treatment Plan OT Treatment Plan ADL Training,Functional Mobility,Patient/Family Education,Discharge Planning Discharge Recommendations OT Discharge Recommendations SNF Rehab Transportation Needs at Discharge Wheelchair/Cabulance
--- NOTE | 2021-01-29 10:22 | PT.IPTN ---
Current Diagnoses Other secondary scoliosis, thoracolumbar region (01/24/21) Spinal stenosis, lumbar region without neurogenic claudication (01/24/21) Postlaminectomy syndrome, not elsewhere classified (01/24/21) Surgery Performed Operation Date: 01/24/21 07:45 Actual Procedures p L3-4, L4-5 TLIF w/ posterior instrumentation - Lucinda South MD Physical Therapy Treatment Note M2 PT-IP Current Condition Start: 01/25/21 13:44 Freq: NEEDED Status: Active Protocol: Document 01/27/21 10:24 MA (Rec: 01/27/21 10:41 MA [id number]) Physical Therapy Current Condition Current Condition Evaluation Date 01/25/21 Treatment Diagnosis s/p L3-4, L4-5 fusion/lami; difficulty in walking Onset Date 01/24/21 Precautions Lumbar Precautions Log Roll,No Twisting,Limit Bending,Lifting Restriction of 10 lbs,Gait Belt above Incisional Area M3 PT-IP Subjective Start: 01/25/21 13:44 Freq: NEEDED Status: Active Protocol: Document 01/29/21 10:01 SP (Rec: 01/29/21 14:45 SP [id number]) Subjective Physical Therapy Visit Type Type Treatment Note Visit Start Time 10:01 Visit Stop Time 10:22 Total Visit Minutes 21 Notes VItals taken during tx: supine: BP 124/65 HR 93 92% SaO2 on RA. seated at EOB: BP 124/70. Partial CoTx with OT during out of bed mobility and return to bed. Number of MORGUE TECHNICIAN Visits 1 Physical Therapy Visit Comments Patient Comments pt is agreeable to do PT Patient Goals Get stronger to return home with spouse, willing to go to rehab before going home knowing his can not assist him. Therapy Pain Assessment Pain When Pain Assessed During Mobility Pain Present Pain Present Pain Reported Location Back Intensity 7 Scale Used 7-8/10 with mobility Pain Management Techniques Distraction,Modification of Treatment,Re-positioning, Timing of Activity with Medications M4 PT-IP Mobility and Gait Start: 01/25/21 13:44 Freq: NEEDED Status: Active Protocol: Document 01/29/21 10:01 SP (Rec: 01/29/21 14:45 SP [id number]) PT-Bed Mobility Assessment Rolling Type of Rolling Log Rolling Level of Assist Minimal Assistance,1 Person Assistance Supine to Sit Supine to Sit Maximum Assistance,1 Person Assistance,Bedrails Sit to Supine Sit to Supine Maximum Assistance,2 Person Assistance,Bedrails Scooting Scooting to Edge of Bed Minimal Assistance PT-Transfer Assessment Sit to and From Stand Sit to and from Stand Maximum Assistance,2 Person Assistance Equipment Transfer Assistive Device Gait Belt,Front Wheeled Walker Orthotic/Prosthetic Devices or Brace: No Transfers Transfer Destination Bed Transfer Technique ambulated using FWW Transfer Ability Level of Assist Minimal Assistance,Moderate Assistance,2 Person Assistance ,Use of Upper Extremities Comments Mobility Comments pt supine in bed when arrived. Min A to LR to R use of BUE on bed rails, SL to sit Max A x1 for trunk righting and min for LEs to EOB. Pt able to scoot to EOB [place] for trunk support due to retrol lean. Pt able to sit at EOB SBA with UEs to support him. MORGUE TECHNICIAN assessed vital pre/ during mobility see notes above, denied symptomatic. Sit<>Stand Max A x2 with max cuing for UE pushing from bed, unsteady BLEs into extension, cued quad facilitation, heavy BUEs transition quick to FWW. Able to stand 20 sec before required seated rest at EOB Max for slow descend. Sit> stand MaxA x2, SPT to chair 3 ft using FWW Mod A x2, declined sitting onto chair stating is to low, hard and painful requested return to bed, pivoted using fWW back to EOB, Mod A x2 for slow descent to bed. Sit>supine Max A x2 for trunk and LE support with cuing for maintaining no twisting precautions. Pt able to laterall scoot in bed to center himself with Mod- Max A of 2 and LEs pushing into bed and UE on bed rails. Pt would benefit from continued skilled therapy to improve strength, endurance and functional mobility. Gait Assessment Comments Gait Comments SPT using FWW Mod A x2 only bed<> chair with out sitting in chair 3 ft. Stair Climbing Assessment Comments Stair Climbing Comments unable to complete. PT-Balance Assessment Sitting Balance and Reactions Static Sitting Balance Ability Good Dynamic Sitting Balance Ability Fair Standing Balance and Reactions Static Standing Balance Ability Poor Dynamic Standing Balance Ability Poor Device Used FWW M5 PT-IP Objective Assessments Start: 01/25/21 13:44 Freq: NEEDED Status: Active Protocol: Document 01/25/21 11:20 AB (Rec: 01/25/21 13:59 AB [id number]) Orientation Orientation/Cognition Level of Alertness Alert Orientation Name,Place,Situation Safety Awareness Decreased Safety Awareness Memory Description Short Term Impaired Gross Range of Motion Lower Extremity ROM Assessment Within Functional Limits Strength Lower Extremity Strength Assessment Left Impaired Hip 3-/5 Knee 3-/5 Muscle Tone Muscle Tone WNL Yes M6 PT-IP Treatment Start: 01/25/21 13:44 Freq: NEEDED Status: Active Protocol: Document 01/29/21 10:01 SP (Rec: 01/29/21 14:45 SP [id number]) Physical Therapy Treatment Education Education Provided Precautions,Safety Other Treatments Other Treatment Performed Pt able to repeat spinal precautions today, requires cuing to maintain during log roll M7 PT-IP Assessment and Plan Start: 01/25/21 13:44 Freq: NEEDED Status: Active Protocol: Document 01/29/21 10:01 SP (Rec: 01/29/21 14:45 SP [id number]) PT Summary Assessment and Plan Potential Rehabilitation Potential Good Status of Condition at Evaluation Evolving Summary Impairments Pain,ROM,Strength,Balance, Coordination,Sensation,Tone, Cognition,Bed Mobility, Transfers,Gait,Activity Tolerance Progress Towards Goals Slow Progress due to Pain,Slow Progress due to Medical Issues,Slow Progress due to Activity Tolerance Assessment Summary Pt requires Max A x2 during all mobility using fWW, unable to perform gait at this pm tx due to pain and decreased strength. Pt would benfit from continued therapy to improve strength and functional mobility with agreement to futher rehab. Pt is ok to transport via w/c cabulance at [place]. Goals Bed Mobility Goal Minimal Assistance Transfer Goal Minimal Assistance,Front Wheeled Walker Gait Goal Minimal Assistance,Front Wheel Walker Gait Distance 50 Other Goals improve bed mobility, transfers SBA and ambulation SBA using FWW 100 ft up/down 5 steps 1 rail SBA Days to Meet Goals 10 Frequency of Treatment Frequency Of Treatment Twice a Day Treatment Plan Physical Therapy Treatment Plan Bed Mobility Training,Transfer Training,Gait Training, Therapeutic Exercise,Balance Retraining,Post Op Education, Discharge Planning,Hot or Cold Pack,Neuromuscular Re-ed, Coordination Retraining,Manual Therapy Other Recommendations and Next Treatment LE ex, bed mob, transfers, Focus gait using FWW, stair mgt when safe. Precautions Lumbar Precautions Log Roll,No Twisting,Limit Bending,Lifting Restriction of 10 lbs,Gait Belt above Incisional Area Recommendations To Nursing Amount of Assist Needed 2 Person Assist Discharge Recommendations PT Discharge Recommendations SNF Rehab Transportation Needs at Discharge Wheelchair/Cabulance
--- NOTE | 2021-01-29 10:48 | CM.DPC ---
Addendum entered by RAFITA Traore 01/29/21 16:04: ADD: Return call from [facility] and they can transport around 1430. COLIN updated spouse and provided [facility] contact info as she hasn't heard from them and she will call about cost and payment. COLIN called [facility] with update on transport time and called Ortho PA with update on transport time and he will finalize d/c. LYNDSEY Richardson kindly will fax d/c packet to [facility]. BF Original Note: DCP Discharge SNF SW recieved a call from [facility] SNF in [place] stating they received [employer] auth for SNF and could accept today anytime before evening. Per Ortho PA, pt getting some fluids today as his bp was a little low but plan is still d/c to SNF today and SW updated on insurance auth and acceptance at [facility]. Ortho PA plans to write discharge late morning if pt's vitals stabilize. COLIN spoke to PT/OT to assess pt to determine POV vs cabulance for transport and per PT pt is not safe for spouse's POV for transport to [place] and recommend cabulance. COLIN called spouse and updated on insurance auth for SNF and acceptance at [facility] and provided address and contact information and she is agreeable with d/c there today. SW discussed cabulance recommendation and out of pocket expense and she is agreeable with [employer] company calling her to give her quote and figure out payment options. Spouse plans to drop off pt's belongings to [facility] today some time and will call the facility to plan this. LYNDSEY Richardson called [facility] cabulance transport and they are trying to work pt into their schedule and have spouse's contact info for payment information and coordination. COLIN updated [facility] and awaiting final discharge. Plan: Patient to likely [facility] once discharge completed. RAFITA Traore
[2021-01-29] MEDS: SODIUM CHLORIDE 0.9% 1,000 ML 1000 ML IV (11:05)
[2021-01-29 11:17] LABS: COVID19 - ADMIT (NP swab/PCR) Negative (Negative)
[2021-01-29 11:37] VITALS: BP 131/70; PULSE 64; RESP 15; TEMP 36.4; O2SAT 93
--- NOTE | 2021-01-29 11:57 | CM.DPNOTE ---
Addendum entered by Debra Varela 01/29/21 14:30: Time changed to 3:15 to 3:30 per Alma at [facility]. Debra Varela CM Asst. Original Note: Call [facility] and spoke to Alma for transport today [phone] to [facility] in [place]. Relayed this information to Ankit RN. Debra Varela CM Asst.
--- NOTE | 2021-01-29 13:24 | P.DS_ITS ---
History of Present Illness History of Present Illness Date Patient Seen: 01/29/21 Time Patient Seen: 13:24 Chief complaint: Translaminar Interbody Fusion/Laminotomy *OPB* Narrative: Patient has been having chronic back pain and worsening lumbar radiculopathy. Patient had previous lumbar decompression surgery with temporary relief. Patient has been having worsening leg pain and back pain over the last 6 months. Patient failed multiple conservative management with worsening pain weakness and numbness in her lower extremity. Patient has been having difficulty performing activity of daily living. After discussing risks benefits of treatment options, patient elected proceed with surgery. Discharge Providers Provider Date of admission: 01/24/21 06:01 Discharge Date: 01/29/21 Primary care physician: Te Garcia PA-C Consults: 01/24/21 07:07 Consult to Respiratory Therapy Evaluate & Treat Comment: Physician Instructions: Evaluate and treat 01/24/21 07:12 Consult to Respiratory Therapy Evaluate & Treat Comment: Physician Instructions: Evaluate and treat 01/24/21 13:50 Consult to Occupational Therapy Evaluate & Treat Comment: Physician Instructions: Evaluate and treat Consult to Physical Therapy Evaluate & Treat Comment: Physician Instructions: Evaluate and Treat Discharge provider: Betehl Paige PA-C Summary Hospital Course Discharge Diagnosis: L3-4, L4-5 spinal stenosis History of laminectomy with epidural scarring Lumbar spondylosis with radiculopathy Status post L3-4, L4-5 Postero-lateral and posterior interbody fusion 2. L3-4, L4-5 interbody cage placement. 3. L3-4, L4-5 decompressive laminectomy with bilateral facetecomies 4. L3-4, L4-5 Posterior segmental instrumentation 5. [place] of bone marrow from iliac crest 6. Utilization of microsurgical technique and operating microscope Hospital Course: Patient was admitted to the hospital following the above-listed procedure for the above-listed diagnoses following the procedure the patient has been convalescing appropriately in his pain has been managed with current pain management regimen. Throughout the course of his stay in the hospital the patient has denied fever, chills, nausea, chest pain, shortness of breath, or urinary retention. Dressing over the incision site has remained intact following surgery. Dressing has been changed as needed as it has become damaged or soiled. Patient successfully worked on ambulation with the assistance of a front wheeled walker with physical therapy, however he has been slow to progress. Status at Discharge Cognitive/behavioral status at discharge: oriented Functional status at discharge: uses cane/walker Overall status at discharge: patient is progressing back to baseline Exam Vital Signs (past 8 hours): - 01/29/21 08:08 01/29/21 09:07 01/29/21 11:37 Temperature 98.4 F 97.6 F Pulse Rate 64 64 64 Respiratory Rate 16 15 Blood Pressure 128/71 131/70 Pulse Oximetry 94 93 Fraction of Inspired Oxygen 24 Oxygen Delivery Method Room Air Oxygen Flow Rate 0 Narrative Exam Narrative: 70-year-old male postop day 5. Patient is resting comfortably in bed, is in no acute distress, and is alert and oriented x3. Skin is warm and dry, and the skin surrounding the incision site is free of erythema, warmth, induration, or discharge. Dressing over the incision site is clean, dry, and intact. Good sensation appreciated throughout the bilateral lower extremities to light touch. Ankle dorsiflexion, plantar flexion, eversion, inversion performed bilaterally without difficulty or discomfort. Calves are soft and nontender, negative Homans sign. No other signs of DVT appreciated. Const General: cooperative, healthy appearing and comfortable Resp Effort & Inspection: normal respiratory effort and able to speak in complete sentences Skin General: no rashes or lesions noted Objective Labs Result Diagrams: 01/25/21 05:40 Labs: Laboratory Results - last 24 hr 01/29/21 07:57 SARS-CoV-2 (PCR) Negative [facility] Medical History Arthritis Bradycardia Diabetes (~2019) Easy bruisability GERD (gastroesophageal reflux disease) HTN (hypertension) Hyperlipidemia Kidney stones Numbness and tingling Osteoarthritis Prostate cancer (2019) Surgical History History of bilateral carpal tunnel release History of total left hip arthroplasty History of total right hip arthroplasty Hx of arthroscopy of right knee Hx of heart artery stent Hx of lithotripsy Hx of microdiscectomy (04/25/18) Hx of nasal septoplasty Hx of tonsillectomy S/P CABG x 4 Social History household members: spouse Smoking Status: Current every day smoker alcohol intake: current Discharge Assessment & Plan Assessment and Plan Assessment: Patient is doing well and is stable. Plan of Treatment: First postoperative visit in clinic is scheduled for 2 weeks following discharge from the hospital. Current pain management regimen is to be continued as it is adequately controlled the patient's pain level. Dressing over the incision site is to remain clean, dry, and intact. Dressing can be changed as needed if it becomes damaged or soiled. Patient is to remain weight-bearing as tolerated with the assistance of a front wheeled walker. Avoid bending, twisting, or lifting. Patient is to contact the clinic with any concerns or questions. Any signs of increased redness, swelling, warmth, pain, or discharge from around the incision site should be reported to the clinic. Discharge Plan Discharge Plan Patient Disposition: [facility] Other facility: [facility] Discharge orders & Medications Prescriptions: New oxycodone 5 mg Tablet 10 mg PO Q3HR PRN (Reason: Pain, Severe (7-10)) Qty: 42 RF: 0 acetaminophen 325 mg Tablet 650 mg PO Q6HR PRN (Reason: Pain, Mild (1-3)) Qty: 90 RF: 0 Continued atorvastatin 80 mg Tablet 80 mg PO DAILY Qty: 0 RF: 0 ramipril 10 mg Tablet 10 mg PO DAILY Qty: 0 RF: 0 metformin 500 mg Tablet 500 mg PO DAILY RF: 0 tolterodine 2 mg Tablet 2 mg PO DAILY RF: 0 tamsulosin 0.4 mg Capsule 0.8 mg PO BEDTIME RF: 0 ibuprofen 200 mg Tablet 600 mg PO DAILY PRN (Reason: Pain) RF: 0 Advil PM 200-38 mg Tablet 1 cap PO BEDTIME RF: 0 Follow up/Referrals: Te Garcia PA-C [Primary Care Provider] - Diet/Activity/Treatments Diet: Diet as Tolerated and Regular Activity: Weight-bearing as tolerated with the assistance of a front wheeled walker. Avoid bending, twisting, lifting. Skin/Wound/Dressing Care Report to your healthcare provider any signs of infection, such as:: chills, fever, night sweats, increased pain, unusual drainage and unusual redness Dressing: Dressing over incision site can be changed as needed if it becomes damaged or soiled. Other wound treatment: Avoid placing topical ointments over the incision site. Avoid soaking the incision site. Visit Report/Discharge Packet Instructions: DI for Prescription Opioid Use, DI for Transforaminal Lumbar Interbody Fusion Stand Alone Forms: Surgery Discharge Discharge Data Primary Care Provider: Te Garcia VTE Deep Vein Thrombosis/Pulmonary Embolism Present on Admission: No
--- NOTE | 2021-01-29 13:55 | CM.DPNOTE ---
Faxed signed med list and faxed DC summary & Vacc card to [place] at [place]. Received confirm. Debra Varela CM Asst.
--- NOTE | 2021-01-29 15:04 | PT.IPTN ---
Current Diagnoses Other secondary scoliosis, thoracolumbar region (01/24/21) Spinal stenosis, lumbar region without neurogenic claudication (01/24/21) Postlaminectomy syndrome, not elsewhere classified (01/24/21) Surgery Performed Operation Date: 01/24/21 07:45 Actual Procedures p L3-4, L4-5 TLIF w/ posterior instrumentation - Lucinda South MD Physical Therapy Treatment Note M2 PT-IP Current Condition Start: 01/25/21 13:44 Freq: NEEDED Status: Discharge Protocol: Document 01/27/21 10:24 MA (Rec: 01/27/21 10:41 MA [id number]) Physical Therapy Current Condition Current Condition Evaluation Date 01/25/21 Treatment Diagnosis s/p L3-4, L4-5 fusion/lami; difficulty in walking Onset Date 01/24/21 Precautions Lumbar Precautions Log Roll,No Twisting,Limit Bending,Lifting Restriction of 10 lbs,Gait Belt above Incisional Area M3 PT-IP Subjective Start: 01/25/21 13:44 Freq: NEEDED Status: Discharge Protocol: Document 01/29/21 14:55 SP (Rec: 01/29/21 16:20 SP [id number]) Subjective Physical Therapy Visit Type Type Treatment Note Visit Start Time 14:55 Visit Stop Time 15:04 Total Visit Minutes 9 Notes RN LACTATION provided 2nd person assist required during standing mobility. Number of SMOKE CHASER Visits 2 Physical Therapy Visit Comments Patient Comments pt agreeable to working with PT, wants assist to get into w /c for transfer to another facility. Patient Goals Get stronger to return home with spouse, willing to go to rehab before going home knowing his can not assist him. Therapy Pain Assessment Pain When Pain Assessed During Mobility Pain Present Pain Present Pain Reported Location Back Intensity 7 Scale Used Numeric (0 - 10) Pain Management Techniques Distraction,Modification of Treatment,Re-positioning, Timing of Activity with Medications M4 PT-IP Mobility and Gait Start: 01/25/21 13:44 Freq: NEEDED Status: Discharge Protocol: Document 01/29/21 14:55 SP (Rec: 01/29/21 16:20 SP [id number]) PT-Bed Mobility Assessment Rolling Type of Rolling Log Rolling Level of Assist Minimal Assistance,1 Person Assistance Supine to Sit Supine to Sit Maximum Assistance,1 Person Assistance,Bedrails Scooting Scooting to Edge of Bed Contact Guard Assistance PT-Transfer Assessment Sit to and From Stand Sit to and from Stand Minimal Assistance,Maximum Assistance,2 Person Assistance ,Use of Upper Extremities Equipment Transfer Assistive Device Gait Belt,Front Wheeled Walker Orthotic/Prosthetic Devices or Brace: No Transfers Transfer Destination Wheelchair Transfer Technique Stand Step Pivot Transfer Ability Level of Assist Contact Guard Assistance, Minimal Assistance,1 Person Assistance,Use of Upper Extremities Comments Mobility Comments Pt completed LR to R knees bent using BUE on bed rail Min A x1, R SL >sit Max A x1 for trunk righting, cues for LE to EOB. Scoot to EOB CGA. Sit> stand Max A x1, Min A x1 heavy RUE pushing from bed and LUE downward pressure onFWW,cues for quad facilitation and upright posture. Once in standing able to pivot feet and fWW to R to w/c CGA- Min A x1 WBOS. Mod A for slow descend into w/c, occasional cues for reaching back. RN LACTATION provided urinal use per pt request once in sitting, able use independently. Left pt with RN LACTATION to complete DC and [facility] Pt being transferred to rehab facility. Gait Assessment Comments Gait Comments SPT only bed>CG-min A x1 using FWW, WBOS step to patterning. Stair Climbing Assessment Comments Stair Climbing Comments unable to complete. PT-Balance Assessment Sitting Balance and Reactions Static Sitting Balance Ability Good Dynamic Sitting Balance Ability Fair Standing Balance and Reactions Static Standing Balance Ability Fair Dynamic Standing Balance Ability Poor Device Used FWW M5 PT-IP Objective Assessments Start: 01/25/21 13:44 Freq: NEEDED Status: Discharge Protocol: Document 01/25/21 11:20 AB (Rec: 01/25/21 13:59 AB [id number]) Orientation Orientation/Cognition Level of Alertness Alert Orientation Name,Place,Situation Safety Awareness Decreased Safety Awareness Memory Description Short Term Impaired Gross Range of Motion Lower Extremity ROM Assessment Within Functional Limits Strength Lower Extremity Strength Assessment Left Impaired Hip 3-/5 Knee 3-/5 Muscle Tone Muscle Tone WNL Yes M6 PT-IP Treatment Start: 01/25/21 13:44 Freq: NEEDED Status: Discharge Protocol: Document 01/29/21 14:55 SP (Rec: 01/29/21 16:20 SP [id number]) Physical Therapy Treatment Education Education Provided Precautions,Safety Other Treatments Other Treatment Performed Pt able to repeat spinal precautions today, required occaional cuing to maintain no twisting during log roll. M7 PT-IP Assessment and Plan Start: 01/25/21 13:44 Freq: NEEDED Status: Discharge Protocol: Document 01/29/21 14:55 SP (Rec: 01/29/21 16:20 SP [id number]) PT Summary Assessment and Plan Potential Rehabilitation Potential Good Status of Condition at Evaluation Evolving Summary Impairments Pain,ROM,Strength,Balance, Coordination,Sensation,Tone, Cognition,Bed Mobility, Transfers,Gait,Activity Tolerance Progress Towards Goals Progressing Toward Goals,Slow Progress due to Pain,Slow Progress due to Activity Tolerance Assessment Summary Pt required Max A x1 during bed mob, Max A x1, Min A x1 sit>stand, Mod Ax1 stand>sit and CG- Min A x1 for SPT using FWW. Recommending skilled rehab for further strengthening and endurance toward functional mobility. Goals Bed Mobility Goal Minimal Assistance Transfer Goal Minimal Assistance,Front Wheeled Walker Gait Goal Minimal Assistance,Front Wheel Walker Gait Distance 50 Other Goals improve bed mobility, transfers SBA and ambulation SBA using FWW 100 ft up/down 5 steps 1 rail SBA Days to Meet Goals 10 Frequency of Treatment Frequency Of Treatment Twice a Day Treatment Plan Physical Therapy Treatment Plan Bed Mobility Training,Transfer Training,Gait Training, Therapeutic Exercise,Balance Retraining,Post Op Education, Discharge Planning,Hot or Cold Pack,Neuromuscular Re-ed, Coordination Retraining,Manual Therapy Other Recommendations and Next Treatment LE ex, bed mob, transfers, Focus gait using FWW, stair mgt when safe pre DC home. Precautions Lumbar Precautions Log Roll,No Twisting,Limit Bending,Lifting Restriction of 10 lbs,Gait Belt above Incisional Area Recommendations To Nursing Amount of Assist Needed 2 Person Assist Discharge Recommendations PT Discharge Recommendations SNF Rehab Transportation Needs at Discharge Wheelchair/Cabulance
--- NOTE | 2021-01-29 15:34 | PC.NURSE ---
Pt A&Ox3. VSS, afebrile on RA. Able to ambulate with FWW, to BR. Able to participate with therapy this shift. Reports pain / well controlled wiht prn oxycodone, tylenol and vistoril to 3 this shift. Dressing C/D/I. Transported with all belongings this afternoon at 1515 with cabulance to [facility].
== END 2021-01-29 15:15 | DRG 455 ==
LOC: OR 06:14 → AC 06:16
PROVIDERS: Physician Assistant; Admitting Provider Orthopaedic Surgery Orthopaedic Surgery of the Spine; PCP Physician Assistant; Referring Provider Orthopaedic Surgery; Visit Provider Orthopaedic Surgery Orthopaedic Surgery of the Spine
PROC: 0SG10AJ Fusion of 2 or more Lumbar Vertebral Joints with Interbody Fusion Device, Posterior Approach, Anterior Column, Open Approach (ICD-10-PCS; principal; 2021-01-24 07:45)
DX: M48.061 Spinal stenosis, lumbar region without neurogenic claudication (principal); M54.16 Radiculopathy, lumbar region; M51.26 Other intervertebral disc displacement, lumbar region; I10 Essential (primary) hypertension; E78.5 Hyperlipidemia, unspecified; I25.10 Atherosclerotic heart disease of native coronary artery without angina pectoris; Z95.1 Presence of aortocoronary bypass graft; Z87.891 Personal history of nicotine dependence; Z20.822 Contact with and (suspected) exposure to COVID-19
CPT/HCPCS: 36415; 72100; 76000; 81001; 82962; 85014; 85018; 87086; 87635; 94760; 97110; 97116; 97162; 97166; 97530; 99406; C1776; C9803; C9290; J0330; J0690; J1170; J1815; J2405; J2704; J3010; J7613

== ENCOUNTER → 2022-01-13 11:09 | Outpatient (CLI) | payer MEDICARE, SELFPAY ==
[2021-01-24 15:39] VITALS: BMI 30.2
--- NOTE | 2022-01-13 | DI.MRI.S_ITS ---
PROCEDURE: MR LUMBAR SPINE WO CON INDICATIONS: SPINAL STENOSIS OF LUMBAR REGION TECHNIQUE: Noncontrast sagittal T1 spin echo and T2 fast echo, sagittal STIR, and T2 fast spin echo through the lumbar spine. In cases with scoliosis, additional coronal T2 fast spin echo may be performed. COMPARISON: None. FINDINGS: Image quality: Excellent. Alignment and Curvature: There is normal bony alignment. Bone Marrow: Vertebral body height is maintained. L3, L4 and L5 posterior kyle and screw instrumentation present. Modic type 1 degenerative endplate changes present particularly at L 2 3 and L4-5. Discectomy and fusion at L3-4 and L4-5. Left hemilaminectomy L4-5. Spinal Cord: Conus medullaris terminates at the L1 level. Visualized cord demonstrates normal signal and size. Paraspinous Soft Tissues: Postoperative granulation tissue noted in the posterior paraspinal musculature at the L4 level. T12-L1: Disc space narrowing with asymmetric left disc bulge results in mild to moderate central stenosis and effacement of the left lateral recess mild left and no right foraminal stenosis L1-L2: Disc space narrowing with circumferential disc bulge and hypertrophic facet joints results in mild central stenosis. No foraminal stenosis L2-L3: Disc space narrowing with circumferential disc bulge and hypertrophic facet joints results in moderate central stenosis. Moderate bilateral foraminal stenosis L3-L4: Discectomy and fusion present. Left brijesh laminectomy noted. Moderate right and left foraminal stenosis. No central stenosis. L4-L5: Discectomy and fusion with left hemilaminectomy. No central stenosis. Moderate left and no right foraminal stenosis L5-S1: Disc space narrowing with circumferential disc bulge asymmetric to the right present. No central stenosis. Severe right and moderate left foraminal stenosis. IMPRESSION: 1. Multilevel degenerative disc disease and arthropathy results in varying degrees of central and foraminal stenosis including moderate central and bilateral foraminal stenosis at L2-3. 2. Discectomy and fusion with posterior kyle and screw instrumentation and left hemilaminectomies at L3-4 and L4-5 Approved by: James Mas M.D. on 01/13/2022 at 17:09
== END ==
PROVIDERS: PCP Physician Assistant; Referring Provider Orthopaedic Surgery Orthopaedic Surgery of the Spine; Visit Provider Orthopaedic Surgery Orthopaedic Surgery of the Spine
DX: M48.061 Spinal stenosis, lumbar region without neurogenic claudication (principal); M48.07 Spinal stenosis, lumbosacral region; M51.36 Other intervertebral disc degeneration, lumbar region; M47.816 Spondylosis without myelopathy or radiculopathy, lumbar region; Z98.1 Arthrodesis status
CPT/HCPCS: 72148

== ENCOUNTER → 2024-01-21 11:21 | Outpatient (CLI) | payer MEDICARE, SELFPAY ==
[2021-01-24 15:39] VITALS: BMI 30.2
--- NOTE | 2024-01-21 11:52 | EKG_ITS ---
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
[2024-01-21 12:16] LABS: Add Manual Diff / Slide Review NO; Basophils Absolute Auto 0 /uL (0-100); Basophils Percent Auto 0.6 % (0-2); Eosinophils Absolute Auto 100 /uL (0-450); Eosinophils Percent Auto 1.5 % (2-4); Hemoglobin 12.8 g/dL (13.5-17.5); Lymphocytes Absolute Auto 1200 /uL (1100-4500); Lymphocytes Percent Auto 17.5 % (25-40); Mean Corpuscular HGB Conc 33.6 % (30-36); Mean Corpuscular Hemoglobin 29.7 PG (26-34); Mean Corpuscular Volume 88.3 fL (80-100); Monocytes Absolute Auto 400 /uL (0-900); Monocytes Percent Auto 5.2 % (3-14); Neutrophils Absolute Auto 5200 /uL (1500-7000); Neutrophils Percent Auto 75.2 % (50-75); Platelet Count 225 X10^3/uL (150-400); Red Cell Distribution Width 14.8 % (11.6-14.8); White Blood Cell Count 6.9 X10^3/uL (4.5-11.0)
[2024-01-21 12:24] LABS: Hemoglobin A1C% w Est Avg Glu 12.9 % (4.0-6.0)
[2024-01-21 12:34] LABS: BUN Creatinine Ratio 17.5 (6-22); Blood Urea Nitrogen 24 mg/dL (9-20); Calcium 10.2 mg/dL (8.4-10.2); Carbon Dioxide 22 mmol/L (22-32); Chloride 101 mmol/L (98-107); Estimated Glomerular Filt Rate 54 mL/min (>60); Glucose 266 mg/dL (80-110); HEMOLYSIS < 15 (0-50); Potassium 4.8 mmol/L (3.4-5.1); Sodium 132 mmol/L (137-145)
[2024-01-21 13:27] LABS: Appearance Urine UA SL CLOUDY; Bilirubin Urine UA NEGATIVE (NEGATIVE); Color Urine UA YELLOW; Glucose Urine UA 3+ g/dL (Negative); Ketones Urine UA NEGATIVE (NEGATIVE); Leukocyte Esterase Urine UA 2+ (NEGATIVE); Nitrite Urine UA NEGATIVE (Negative); Occult Blood Urine UA 3+ (Negative); Protein Urine UA 1+ (Negative); Specific Gravity Urine UA 1.015 (1.000-1.035); Urobilinogen Urine UA 0.2 E.U./dL (0.2)
[2024-01-21 13:40] LABS: Bacteria Urine None Seen; Culture Indicated Urine Specimen Cultured; RBC Urine 30-100/HPF (0-5/HPF); Squamous Epithelial Cell Urine 1-5 /HPF (0-5/HPF); Urine Volume 10mL (spun); WBC Urine 30-100/HPF (0-5/HPF)
[2024-01-22 06:09] LABS: Fructosamine 410 umol/L (0-285)
== END ==
LOC: LAB 11:24
PROVIDERS: PCP Physician Assistant; Referring Provider Orthopaedic Surgery; Visit Provider Orthopaedic Surgery
DX: Z01.818 Encounter for other preprocedural examination (principal); R73.9 Hyperglycemia, unspecified; Z01.812 Encounter for preprocedural laboratory examination; N39.0 Urinary tract infection, site not specified; R73.09 Other abnormal glucose
CPT/HCPCS: 36415; 80048; 81001; 82985; 83036; 85025; 87086; 93005